=== PATIENT | female | born 1945 | race Caucasian/White ===

== ENCOUNTER → 2018-12-28 09:20 | Outpatient (CLI) | payer OTHER, SELFPAY ==
--- NOTE | 2018-12-28 | DI.MG.S_ITS ---
BILATERAL DIGITAL SCREENING MAMMOGRAM 3D/2D WITH CAD: 12/28/2018 CLINICAL: Routine screening. Comparison is made to exams dated: 12/21/2017 mammogram, 12/02/2015 mammogram, and 11/29/2014 mammogram - [facility]. There are scattered fibroglandular elements in both breasts. Current study was also evaluated with a Computer Aided Detection (CAD) system. No significant masses, calcifications, or other findings are seen in either breast. There has been no significant interval change. IMPRESSION: NEGATIVE There is no mammographic evidence of malignancy. A 1 year screening mammogram is recommended. This exam was interpreted at Station ID: [id number]. NOTE: For mammograms, a report in lay terms will be sent to the patient. Approximately 15% of breast malignancies will not be visualized mammographically. In the management of a palpable breast mass, a negative mammogram must not discourage biopsy of a clinically suspicious lesion. Electronically Signed By: Yaniv Cooley M.D. at/tg:12/28/2018 09:56:14 copy to: Jose Hays letter sent: Normal Exam ACR BI-RADS Category 1: Negative [id number]
== END ==
PROVIDERS: PCP Family Medicine; Visit Provider Nurse Practitioner Family
DX: Z12.31 Encounter for screening mammogram for malignant neoplasm of breast (principal)
CPT/HCPCS: 77063; 77067

== ENCOUNTER → 2019-02-06 09:45 | Outpatient (CLI) | payer OTHER, SELFPAY | PROVIDERS: PCP Family Medicine; Visit Provider Nurse Practitioner Family | DX: M85.852 Other specified disorders of bone density and structure, left thigh (principal); Z78.0 Asymptomatic menopausal state; Z82.62 Family history of osteoporosis | CPT/HCPCS: 77080; 77081 ==

== ENCOUNTER → 2019-04-28 10:16 | Outpatient (CLI) | payer OTHER, SELFPAY ==
--- NOTE | 2019-04-28 | DI.RAD.S_ITS ---
PROCEDURE: XR KNEE RT 3V INDICATIONS: PAIN IN RIGHT KNEE TECHNIQUE: 3 views of the knee were acquired. COMPARISON: None. FINDINGS: Bones: There is moderate right femorotibial medial compartment narrowing. There is small tricompartmental osteophytes. Soft tissues: No joint effusion. There is medial calcific tendinitis. IMPRESSION: Mild osteoarthritis and medial calcific tendinitis. Dictated by: Twyla Florence M.D. on 04/28/2019 at 11:44 Approved by: Twyla Florence M.D. on 04/28/2019 at 11:45
== END ==
PROVIDERS: PCP Nurse Practitioner Family; Visit Provider Nurse Practitioner Family
DX: M17.11 Unilateral primary osteoarthritis, right knee (principal); M76.51 Patellar tendinitis, right knee; M25.561 Pain in right knee
CPT/HCPCS: 73562

== ENCOUNTER 2019-11-08 09:00 | Outpatient (RCR) | payer OTHER, SELFPAY ==
--- NOTE | 2019-09-14 10:20 | PT.OIE ---
Current Diagnoses Unilateral primary osteoarthritis, right knee (09/14/19) Visit Care Team Role Provider Type CHIVO Layton Primary Care Provider Non-Staff Specialty: Medical Address: [address] [place], [address] Email: Cosmo Ferguson MD Attending Provider Non-Staff Specialty: Orthopedics Address: [address] [place] [address], [id number] Email: Physical Therapy Initial Evaluation PT-OP-A Visit Information Start: 09/13/19 18:53 Freq: Status: Active Protocol: Document 09/14/19 08:14 [facility] (Rec: 09/14/19 09:57 [facility] [id number]) Out-Patient Physical Therapy Visit Information Visit Information Visit Type Initial Evaluation Visit Start Time 08:15 Visit Stop Time 09:00 Total Visit Minutes 45 Visit Number 1 Number of SHEAR HELPER Visits 0 PT-OP-B Current Condition Start: 09/13/19 18:53 Freq: Status: Active Protocol: Document 09/14/19 08:14 [facility] (Rec: 09/14/19 09:57 [facility] [id number]) Current Condition History of Current Condition Onset Date Sep 08 2019 Current Complaints s/p R partial knee replacement History of Current Condition Pt reports she is progressing well with dec meds and progressing with activity at home. She does not always use the walker. She normally does hiking, walking and water aerobics and gardens a lot. Pt reprots starting feeling better but has done 700-2000 steps the past few days. Prior Treatments and Tests L partial knee replacement, L hip replacement (post), osteopenia, arthritis, L wrist fx 6 years ago, 2 years ago L radius & ulna fx d/t falls Treatment Goals Patient/Caregiver Goals return hiking, walking, water aerobics gardening PT-OP-C Subjective Start: 09/13/19 18:53 Freq: Status: Active Protocol: Document 09/14/19 08:14 [facility] (Rec: 09/14/19 09:57 [facility] [id number]) Patient Questionnaires Lower Extremity Functional Scale LEFS Score 28 OP-PT Pain Assessment Location R knee Pain Location Details med Scale Used Numeric (1 - 10) Description- Other tension, stiffness Pain Aggravating Factors Stair Climbing,Bending Other Pain Aggravating Factors finding positiong sleeping, getting down, twisting, up/ down from chair Pain Alleviating Factors Cold,Medication,Exercise PT-OP-F Manual Assessment Start: 09/13/19 18:53 Freq: Status: Active Protocol: Document 09/14/19 08:14 [facility] (Rec: 09/14/19 09:57 [facility] [id number]) Manual Assessments Soft Tissue Assessment Soft Tissue Mobility Assessment bruising on thigh and calf and around knee so not tested PT-OP-G Mobility & Gait Start: 09/13/19 18:53 Freq: Status: Active Protocol: Document 09/14/19 08:14 [facility] (Rec: 09/14/19 09:57 [facility] [id number]) OP Gait Assessment Comments Gait Comments Pt presents amb with FWW with even wt bearing. W/o AD no limping but lat hip shift with dec overall push off B PT-OP-K Range of Motion Start: 09/13/19 18:53 Freq: Status: Active Protocol: Document 09/14/19 08:14 [facility] (Rec: 09/14/19 09:57 [facility] [id number]) Knee Goniometric Range of Motion Knee Left Flexion Active (degrees) 126 Extension Active (degrees) 2 Right Flexion Active (degrees) 94 Extension Active (degrees) 6 PT-OP-M Strength Start: 09/13/19 18:53 Freq: Status: Active Protocol: Document 09/14/19 08:14 [facility] (Rec: 09/14/19 09:57 [facility] [id number]) Hip Strength Hip Manual Muscle Testing Left Flexion (L2) 4- Good- Extension (S1) 3+ Fair+ Abduction 4+ Good+ Adduction 5 Normal External Rotation 4- Good- Internal Rotation 4+ Good+ Right Flexion (L2) 3+ Fair+ Extension (S1) 3+ Fair+ Abduction 4- Good- Adduction 4- Good- External Rotation 3+ Fair+ Internal Rotation 4 Good Knee Strength Knee Manual Muscle Testing Left Flexion (S2) 5 Normal Extension (L3) 5 Normal Right Flexion (S2) 4- Good- Extension (L3) 4 Good Ankle/Foot Strength Ankle and Foot Manual Muscle Testing Left Dorsiflexion (L4) 5 Normal Plantarflexion (S1) 4+ Good+ Right Dorsiflexion (L4) 5 Normal Plantarflexion (S1) 4+ Good+ Comments PF tested in seated B PT-OP-Q Treatments Start: 09/13/19 18:53 Freq: Status: Active Protocol: Document 09/14/19 08:14 [facility] (Rec: 09/14/19 09:57 [facility] [id number]) Therapeutic Exercises Supine Exercises heel slides Supine Exercise Name w/APs & quad set Side right Reps/Minutes 10 Sitting Exercises heel slides Sitting Exercise Name w/scoot fwd Side left Reps/Minutes 15 sec x2 Gait Training Gait Activity cane Description amb with proper sequence Self-Care/Home Management Treatment Education Patient Education Home Exercise Program Other Education edu: no driving until cleared, edu on compression sock wearing d/t pt questions, edu on pillow between knees at night, edu re: short bouts of frequent activity PT-OP-T Assessment and Plan Start: 09/13/19 18:53 Freq: Status: Active Protocol: Document 09/14/19 08:14 [facility] (Rec: 09/14/19 09:57 [facility] [id number]) Physical Therapy Assessment Rehab Potential Rehabilitation Potential Excellent Evaluation Complexity Number of Personal Factors/Comorbidities 3 or More Number of Body Systems Impaired 4 or More Clinical Presentation at Evaluation Stable Impairments Impairments Activity Tolerance,Balance, Edema,Functional Activities, Functional Mobility,Gait,Pain, Posture,ROM,Soft Tissue Mobility,Strength Goals activities Short Term Goal (STG) Pt will return to walking short distance 3x/week without inc pain and no AD. STG Duration 10/19/19 Dog Food Shredder Operator Goal (LTG) Pt will be able to return to hiking, walking, and water aerobics actvities as she typically would without inc knee pain. LTG Duration 11/15/19 ROM Short Term Goal (STG) Pt will improve knee ROM to 0- 125 to allow improvement with activity ability. STG Duration 10/19/19 [facility] Goal (LTG) Pt will be able to get up/down from ground without inc pain in order to allow return to gardening activity. LTG Duration 11/15/19 strength Short Term Goal (STG) Pt will be indep with HEP STG Duration 10/15/19 Dog Food Shredder Operator Goal (LTG) Pt will have 5/5 LE strength and LPM to show improved stability and allow her to return to her typical activties without difficulty or pain. LTG Duration 11/15/19 LEFS Impairment 28/80 Short Term Goal (STG) Pt will improve to 45/80 on LEFS in order to showe improved functional ability. STG Duration 10/19/19 Dog Food Shredder Operator Goal (LTG) Pt will improve to 60/80 on LEFS to show ability to return to her typical activity ability. LTG Duration 11/19/19 Assessment Summary Assessment Pt presents 6 days s/p R partial knee replacement with overall dec ROM, inc edema, dec strength, impaired gait & balance and inc pain. She is recovering well overall at this time and was able to train with amb with cane and without AD today, but will cont to require PT in order to progress her mobility in order to allow pt to return to her high level of activity. Physical Therapy Plan Frequency and Duration Frequency of Treatment 2x/Week Duration of Treatment 2 months Plan of Care Start Date 09/14/19 Plan of Care End Date 11/15/19 Therapeutic Interventions Therapeutic Interventions Aquatic Therapy,Balance Training,Gait Training,Home Exercise Program,Joint Mobilizations,Manual Therapy, Neuromuscular Re-education, Patient/Caregiver Education, Self-Care/Home Management,Soft Tissue Mobilization,Taping, Therapeutic Activities, Therapeutic Exercises Modalities Cold Pack/Ice Massage,Electric Stimulation,Hot Packs, Iontophoresis,Ultrasound Next Visit Focus/Plan Next Note Type Treatment Note Next Visit Plan seated stepper, sit<>stand exercise, strengthening for hip, balance training, STM to quad/HS/calves for improving ROM if bruising improved
--- NOTE | 2019-09-19 17:53 | PT.OTN ---
Current Diagnoses Unilateral primary osteoarthritis, right knee (09/19/19) Physical Therapy Treatment Note PT-OP-A Visit Information Start: 09/13/19 18:53 Freq: Status: Active Protocol: Document 09/19/19 09:47 [facility] (Rec: 09/19/19 12:22 [facility] [id number]) Out-Patient Physical Therapy Visit Information Visit Information Visit Type Treatment Note Visit Start Time 09:47 Visit Stop Time 10:45 Total Visit Minutes 58 Visit Number 2 Number of TARIFF EXPERT Visits 0 PT-OP-B Current Condition Start: 09/13/19 18:53 Freq: Status: Active Protocol: Document 09/14/19 08:14 [facility] (Rec: 09/14/19 09:57 [facility] [id number]) Current Condition History of Current Condition Onset Date Sep 08 2019 Current Complaints s/p R partial knee replacement History of Current Condition Pt reports she is progressing well with dec meds and progressing with activity at home. She does not always use the walker. She normally does hiking, walking and water aerobics and gardens a lot. Pt reprots starting feeling better but has done 700-2000 steps the past few days. Prior Treatments and Tests L partial knee replacement, L hip replacement (post), osteopenia, arthritis, L wrist fx 6 years ago, 2 years ago L radius & ulna fx d/t falls Treatment Goals Patient/Caregiver Goals return hiking, walking, water aerobics gardening PT-OP-C Subjective Start: 09/13/19 18:53 Freq: Status: Active Protocol: Document 09/19/19 09:47 [facility] (Rec: 09/19/19 12:22 [facility] [id number]) OP-PT Subjective Patient Comments Patient Comments Pt reports that her pain is improving. SHe is using her walker about 25% of the time in her home, but uses it outside of the house. Pt has post op appt wednesday and will get her stitches out. At night it has been easier to find comfortable positions when sleeping PT-OP-F Manual Assessment Start: 09/13/19 18:53 Freq: Status: Active Protocol: Document 09/14/19 08:14 [facility] (Rec: 09/14/19 09:57 [facility] [id number]) Manual Assessments Soft Tissue Assessment Soft Tissue Mobility Assessment bruising on thigh and calf and around knee so not tested PT-OP-G Mobility & Gait Start: 09/13/19 18:53 Freq: Status: Active Protocol: Document 09/14/19 08:14 [facility] (Rec: 09/14/19 09:57 [facility] [id number]) OP Gait Assessment Comments Gait Comments Pt presents amb with FWW with even wt bearing. W/o AD no limping but lat hip shift with dec overall push off B PT-OP-K Range of Motion Start: 09/13/19 18:53 Freq: Status: Active Protocol: Document 09/14/19 08:14 [facility] (Rec: 09/14/19 09:57 [facility] [id number]) Knee Goniometric Range of Motion Knee Left Flexion Active (degrees) 126 Extension Active (degrees) 2 Right Flexion Active (degrees) 94 Extension Active (degrees) 6 PT-OP-M Strength Start: 09/13/19 18:53 Freq: Status: Active Protocol: Document 09/14/19 08:14 [facility] (Rec: 09/14/19 09:57 [facility] [id number]) Hip Strength Hip Manual Muscle Testing Left Flexion (L2) 4- Good- Extension (S1) 3+ Fair+ Abduction 4+ Good+ Adduction 5 Normal External Rotation 4- Good- Internal Rotation 4+ Good+ Right Flexion (L2) 3+ Fair+ Extension (S1) 3+ Fair+ Abduction 4- Good- Adduction 4- Good- External Rotation 3+ Fair+ Internal Rotation 4 Good Knee Strength Knee Manual Muscle Testing Left Flexion (S2) 5 Normal Extension (L3) 5 Normal Right Flexion (S2) 4- Good- Extension (L3) 4 Good Ankle/Foot Strength Ankle and Foot Manual Muscle Testing Left Dorsiflexion (L4) 5 Normal Plantarflexion (S1) 4+ Good+ Right Dorsiflexion (L4) 5 Normal Plantarflexion (S1) 4+ Good+ Comments PF tested in seated B PT-OP-Q Treatments Start: 09/13/19 18:53 Freq: Status: Active Protocol: Document 09/19/19 09:47 [facility] (Rec: 09/19/19 12:22 [facility] [id number]) Cardio Equipment Recumbent Elliptical (Biodex) Duration (Minutes) 7 Resistance 2 Gym Equipment Shuttle Balance blue Comments 1.fwd/back WBOS, NBOS, stagger stance 2.side/side WBOS, NBOS Therapeutic Exercises Supine Exercises heel slides Supine Exercise Name w/APs & quad set Side right Reps/Minutes 10 Sitting Exercises heel slides Sitting Exercise Name w/scoot fwd Side left Reps/Minutes 15 sec x2 Standing Exercises squat Standing Exercise Name sit to stand Side bilateral Reps/Minutes 10 Comments w/ use of UE as needed hip strength Standing Exercise Name hip abd and ext Side bilateral Resistance none Reps/Minutes 10B Manual Therapy Treatment Soft Tissue Mobilization quadriceps Body Location R ant/lat quad Mobilization Type Rolling,Strumming Intensity/Depth Superficial Body Position Supine Neuro Re-Education Treatment Balance Activities tandem Details tandem stance Surface firm, blue/black therapad PT-OP-R Modalities Start: 09/13/19 18:53 Freq: Status: Active Protocol: Document 09/19/19 09:47 [facility] (Rec: 09/19/19 12:22 [facility] [id number]) Hot Pack/Cold Pack Treatment Hot Pack Location R knee Patient Position Hooklying Treatment Duration (minutes) 15 Patient Tolerance Good PT-OP-T Assessment and Plan Start: 09/13/19 18:53 Freq: Status: Active Protocol: Document 09/19/19 09:47 [facility] (Rec: 09/19/19 12:22 [facility] [id number]) Physical Therapy Assessment Goals activities Short Term Goal (STG) Pt will return to walking short distance 3x/week without inc pain and no AD. STG Duration 10/19/19 [facility] Goal (LTG) Pt will be able to return to hiking, walking, and water aerobics actvities as she typically would without inc knee pain. LTG Duration 11/15/19 ROM Short Term Goal (STG) Pt will improve knee ROM to 0- 125 to allow improvement with activity ability. STG Duration 10/19/19 Plate Hanger Goal (LTG) Pt will be able to get up/down from ground without inc pain in order to allow return to gardening activity. LTG Duration 11/15/19 strength Short Term Goal (STG) Pt will be indep with HEP STG Duration 10/15/19 Plate Hanger Goal (LTG) Pt will have 5/5 LE strength and LPM to show improved stability and allow her to return to her typical activties without difficulty or pain. LTG Duration 11/15/19 LEFS Impairment 28/80 Short Term Goal (STG) Pt will improve to 45/80 on LEFS in order to showe improved functional ability. STG Duration 10/19/19 [facility] Goal (LTG) Pt will improve to 60/80 on LEFS to show ability to return to her typical activity ability. LTG Duration 11/19/19 Assessment Summary Assessment Pt was able to tolerate using the recumbant ellipitical and increased knee flexion. Pt was able to tolerate sit to stand exercise, but required frequent cueing for not letting her knees cave in during the motion and for controlled descent to the chair. Pt had increased knee flexion with heel slides following STM to lat/ant quad. Pt was adequately challnged with NBOS stances but could increase difficulty on the balance board to red clips. Physical Therapy Plan Frequency and Duration Frequency of Treatment 2x/Week Duration of Treatment 2 months Plan of Care Start Date 09/14/19 Plan of Care End Date 11/15/19 Therapeutic Interventions Therapeutic Interventions Aquatic Therapy,Balance Training,Gait Training,Home Exercise Program,Joint Mobilizations,Manual Therapy, Neuromuscular Re-education, Patient/Caregiver Education, Self-Care/Home Management,Soft Tissue Mobilization,Taping, Therapeutic Activities, Therapeutic Exercises Modalities Cold Pack/Ice Massage,Electric Stimulation,Hot Packs, Iontophoresis,Ultrasound Next Visit Focus/Plan Next Note Type Treatment Note Next Visit Plan revisit sit<>stand exercise, strengthening for hip, balance training, side stepping, STM to quad/HS/calves for improving ROM if bruising improved, progress to red clips
--- NOTE | 2019-09-26 12:20 | PT.OTN ---
Current Diagnoses Unilateral primary osteoarthritis, right knee (09/26/19) Physical Therapy Treatment Note PT-OP-A Visit Information Start: 09/13/19 18:53 Freq: Status: Active Protocol: Document 09/26/19 09:04 [facility] (Rec: 09/26/19 12:20 [facility] [id number]) Out-Patient Physical Therapy Visit Information Visit Information Visit Type Treatment Note Visit Start Time 09:05 Visit Stop Time 09:54 Total Visit Minutes 49 Visit Number 3 Number of AIR TANK ASSEMBLER Visits 0 PT-OP-B Current Condition Start: 09/13/19 18:53 Freq: Status: Active Protocol: Document 09/14/19 08:14 [facility] (Rec: 09/14/19 09:57 [facility] [id number]) Current Condition History of Current Condition Onset Date Sep 08 2019 Current Complaints s/p R partial knee replacement History of Current Condition Pt reports she is progressing well with dec meds and progressing with activity at home. She does not always use the walker. She normally does hiking, walking and water aerobics and gardens a lot. Pt reprots starting feeling better but has done 700-2000 steps the past few days. Prior Treatments and Tests L partial knee replacement, L hip replacement (post), osteopenia, arthritis, L wrist fx 6 years ago, 2 years ago L radius & ulna fx d/t falls Treatment Goals Patient/Caregiver Goals return hiking, walking, water aerobics gardening PT-OP-C Subjective Start: 09/13/19 18:53 Freq: Status: Active Protocol: Document 09/26/19 09:04 [facility] (Rec: 09/26/19 12:20 [facility] [id number]) OP-PT Subjective Patient Comments Patient Comments Pt reports she went to the doctor and she was cleared to go out and about in community and use cane only as needed. Pt reports she did a lot the past couple days and is more swollen. She only iced once yesterday d/t being out of town. Pt reports some inc pain but not huge inc in pain. PT-OP-F Manual Assessment Start: 09/13/19 18:53 Freq: Status: Active Protocol: Document 09/14/19 08:14 [facility] (Rec: 09/14/19 09:57 [facility] [id number]) Manual Assessments Soft Tissue Assessment Soft Tissue Mobility Assessment bruising on thigh and calf and around knee so not tested PT-OP-G Mobility & Gait Start: 09/13/19 18:53 Freq: Status: Active Protocol: Document 09/14/19 08:14 [facility] (Rec: 09/14/19 09:57 [facility] [id number]) OP Gait Assessment Comments Gait Comments Pt presents amb with FWW with even wt bearing. W/o AD no limping but lat hip shift with dec overall push off B PT-OP-K Range of Motion Start: 09/13/19 18:53 Freq: Status: Active Protocol: Document 09/14/19 08:14 [facility] (Rec: 09/14/19 09:57 [facility] [id number]) Knee Goniometric Range of Motion Knee Left Flexion Active (degrees) 126 Extension Active (degrees) 2 Right Flexion Active (degrees) 94 Extension Active (degrees) 6 PT-OP-M Strength Start: 09/13/19 18:53 Freq: Status: Active Protocol: Document 09/14/19 08:14 [facility] (Rec: 09/14/19 09:57 [facility] [id number]) Hip Strength Hip Manual Muscle Testing Left Flexion (L2) 4- Good- Extension (S1) 3+ Fair+ Abduction 4+ Good+ Adduction 5 Normal External Rotation 4- Good- Internal Rotation 4+ Good+ Right Flexion (L2) 3+ Fair+ Extension (S1) 3+ Fair+ Abduction 4- Good- Adduction 4- Good- External Rotation 3+ Fair+ Internal Rotation 4 Good Knee Strength Knee Manual Muscle Testing Left Flexion (S2) 5 Normal Extension (L3) 5 Normal Right Flexion (S2) 4- Good- Extension (L3) 4 Good Ankle/Foot Strength Ankle and Foot Manual Muscle Testing Left Dorsiflexion (L4) 5 Normal Plantarflexion (S1) 4+ Good+ Right Dorsiflexion (L4) 5 Normal Plantarflexion (S1) 4+ Good+ Comments PF tested in seated B PT-OP-Q Treatments Start: 09/13/19 18:53 Freq: Status: Active Protocol: Document 09/26/19 09:04 [facility] (Rec: 09/26/19 12:20 [facility] [id number]) Cardio Equipment Recumbent Elliptical ([employer]) Duration (Minutes) 7 Resistance 2 Therapeutic Exercises Standing Exercises Terminal knee ext Side right Equipment Used L2 Reps/Minutes 20 squat Standing Exercise Name sit to stand Side bilateral Reps/Minutes 10 Comments w/ use of UE as needed hip strength Standing Exercise Name hip abd and ext Side bilateral Resistance none Reps/Minutes 10B ea Manual Therapy Treatment Soft Tissue Mobilization HS Body Location R Mobilization Type Rolling ITB Body Location R Mobilization Type Rolling,Strumming quadriceps Body Location R ant/lat quad Mobilization Type Rolling,Strumming Intensity/Depth Superficial Body Position Supine PT-OP-R Modalities Start: 09/13/19 18:53 Freq: Status: Active Protocol: Document 09/26/19 09:04 [facility] (Rec: 09/26/19 12:20 [facility] [id number]) Hot Pack/Cold Pack Treatment Cold Pack Location ant & post R knee Patient Position Hooklying Treatment Duration (minutes) 10 PT-OP-T Assessment and Plan Start: 09/13/19 18:53 Freq: Status: Active Protocol: Document 09/26/19 09:04 [facility] (Rec: 09/26/19 12:20 [facility] [id number]) Physical Therapy Assessment Goals activities Short Term Goal (STG) Pt will return to walking short distance 3x/week without inc pain and no AD. STG Duration 10/19/19 Field Technician Goal (LTG) Pt will be able to return to hiking, walking, and water aerobics actvities as she typically would without inc knee pain. LTG Duration 11/15/19 ROM Short Term Goal (STG) Pt will improve knee ROM to 0- 125 to allow improvement with activity ability. STG Duration 10/19/19 Halfway Goal (LTG) Pt will be able to get up/down from ground without inc pain in order to allow return to gardening activity. LTG Duration 11/15/19 strength Short Term Goal (STG) Pt will be indep with HEP STG Duration 10/15/19 Halfway Goal (LTG) Pt will have 5/5 LE strength and LPM to show improved stability and allow her to return to her typical activties without difficulty or pain. LTG Duration 11/15/19 LEFS Impairment 28/80 Short Term Goal (STG) Pt will improve to 45/80 on LEFS in order to showe improved functional ability. STG Duration 10/19/19 Halfway Goal (LTG) Pt will improve to 60/80 on LEFS to show ability to return to her typical activity ability. LTG Duration 11/19/19 Assessment Summary Assessment Pt able to tolerate all exercises without inc pain. She had dec ROM today compared to her appt with MD but likely d/t inc swelling present today and pt was encouraged to ice at home. Relief felt with STM to ITB region Physical Therapy Plan Frequency and Duration Frequency of Treatment 2x/Week Duration of Treatment 2 months Plan of Care Start Date 09/14/19 Plan of Care End Date 11/15/19 Next Visit Focus/Plan Next Note Type Treatment Note Next Visit Plan cont to progress LE strengthening & knee ROM, STM as needed
--- NOTE | 2019-10-03 09:07 | PT.OTN ---
Current Diagnoses Unilateral primary osteoarthritis, right knee (10/03/19) Physical Therapy Treatment Note PT-OP-A Visit Information Start: 09/13/19 18:53 Freq: Status: Active Protocol: Document 10/03/19 08:18 [facility] (Rec: 10/03/19 09:07 [facility] [id number]) Out-Patient Physical Therapy Visit Information Visit Information Visit Type Treatment Note Visit Start Time 08:15 Visit Stop Time 09:08 Total Visit Minutes 53 Visit Number 4 Number of SEISMOGRAPH CHIEF Visits 0 PT-OP-B Current Condition Start: 09/13/19 18:53 Freq: Status: Active Protocol: Document 09/14/19 08:14 [facility] (Rec: 09/14/19 09:57 [facility] [id number]) Current Condition History of Current Condition Onset Date Sep 08 2019 Current Complaints s/p R partial knee replacement History of Current Condition Pt reports she is progressing well with dec meds and progressing with activity at home. She does not always use the walker. She normally does hiking, walking and water aerobics and gardens a lot. Pt reprots starting feeling better but has done 700-2000 steps the past few days. Prior Treatments and Tests L partial knee replacement, L hip replacement (post), osteopenia, arthritis, L wrist fx 6 years ago, 2 years ago L radius & ulna fx d/t falls Treatment Goals Patient/Caregiver Goals return hiking, walking, water aerobics gardening PT-OP-C Subjective Start: 09/13/19 18:53 Freq: Status: Active Protocol: Document 10/03/19 08:18 [facility] (Rec: 10/03/19 09:07 [facility] [id number]) OP-PT Subjective Patient Comments Patient Comments Pt reports pain has been going okay. She walked 5 miles in [place] one day. Patient Reported Progress Improving PT-OP-F Manual Assessment Start: 09/13/19 18:53 Freq: Status: Active Protocol: Document 09/14/19 08:14 [facility] (Rec: 09/14/19 09:57 [facility] [id number]) Manual Assessments Soft Tissue Assessment Soft Tissue Mobility Assessment bruising on thigh and calf and around knee so not tested PT-OP-G Mobility & Gait Start: 09/13/19 18:53 Freq: Status: Active Protocol: Document 09/14/19 08:14 [facility] (Rec: 09/14/19 09:57 [facility] [id number]) OP Gait Assessment Comments Gait Comments Pt presents amb with FWW with even wt bearing. W/o AD no limping but lat hip shift with dec overall push off B PT-OP-K Range of Motion Start: 09/13/19 18:53 Freq: Status: Active Protocol: Document 09/14/19 08:14 [facility] (Rec: 09/14/19 09:57 [facility] [id number]) Knee Goniometric Range of Motion Knee Left Flexion Active (degrees) 126 Extension Active (degrees) 2 Right Flexion Active (degrees) 94 Extension Active (degrees) 6 PT-OP-M Strength Start: 09/13/19 18:53 Freq: Status: Active Protocol: Document 09/14/19 08:14 [facility] (Rec: 09/14/19 09:57 [facility] [id number]) Hip Strength Hip Manual Muscle Testing Left Flexion (L2) 4- Good- Extension (S1) 3+ Fair+ Abduction 4+ Good+ Adduction 5 Normal External Rotation 4- Good- Internal Rotation 4+ Good+ Right Flexion (L2) 3+ Fair+ Extension (S1) 3+ Fair+ Abduction 4- Good- Adduction 4- Good- External Rotation 3+ Fair+ Internal Rotation 4 Good Knee Strength Knee Manual Muscle Testing Left Flexion (S2) 5 Normal Extension (L3) 5 Normal Right Flexion (S2) 4- Good- Extension (L3) 4 Good Ankle/Foot Strength Ankle and Foot Manual Muscle Testing Left Dorsiflexion (L4) 5 Normal Plantarflexion (S1) 4+ Good+ Right Dorsiflexion (L4) 5 Normal Plantarflexion (S1) 4+ Good+ Comments PF tested in seated B PT-OP-Q Treatments Start: 09/13/19 18:53 Freq: Status: Active Protocol: Document 10/03/19 08:18 [facility] (Rec: 10/03/19 09:07 [facility] [id number]) Cardio Equipment Recumbent Bicycle Duration (Minutes) 5 Resistance 1 Seat Position 4 Other rocking then backwards then fwd Gym Equipment Shuttle Recovery Bilateral Squats Resistance 75 Shuttle Recovery Platform Stable Reps/Time 20 Shuttle Balance red Comments fwd & side: WBOS, NBOS Therapeutic Exercises Standing Exercises Terminal knee ext Side right Equipment Used L2 Reps/Minutes 20 squat Standing Exercise Name sit to stand Side bilateral Reps/Minutes 10 Comments w/ use of UE as needed hip strength Standing Exercise Name hip abd and ext Side bilateral Resistance L1 Reps/Minutes 15B ea Manual Therapy Treatment Soft Tissue Mobilization ITB Body Location R Mobilization Type Rolling,Strumming PT-OP-R Modalities Start: 09/13/19 18:53 Freq: Status: Active Protocol: Document 10/03/19 08:18 [facility] (Rec: 10/03/19 09:07 [facility] [id number]) Hot Pack/Cold Pack Treatment Cold Pack Location ant & post R knee Patient Position Hooklying Treatment Duration (minutes) 10 PT-OP-T Assessment and Plan Start: 09/13/19 18:53 Freq: Status: Active Protocol: Document 10/03/19 08:18 [facility] (Rec: 10/03/19 09:07 [facility] [id number]) Physical Therapy Assessment Goals activities Short Term Goal (STG) Pt will return to walking short distance 3x/week without inc pain and no AD. STG Duration 10/19/19 Residential Interior Designer Goal (LTG) Pt will be able to return to hiking, walking, and water aerobics actvities as she typically would without inc knee pain. LTG Duration 11/15/19 ROM Short Term Goal (STG) Pt will improve knee ROM to 0- 125 to allow improvement with activity ability. STG Duration 10/19/19 Residential Interior Designer Goal (LTG) Pt will be able to get up/down from ground without inc pain in order to allow return to gardening activity. LTG Duration 11/15/19 strength Short Term Goal (STG) Pt will be indep with HEP STG Duration 10/15/19 Residential Interior Designer Goal (LTG) Pt will have 5/5 LE strength and LPM to show improved stability and allow her to return to her typical activties without difficulty or pain. LTG Duration 11/15/19 LEFS Impairment 28/80 Short Term Goal (STG) Pt will improve to 45/80 on LEFS in order to showe improved functional ability. STG Duration 10/19/19 Residential Interior Designer Goal (LTG) Pt will improve to 60/80 on LEFS to show ability to return to her typical activity ability. LTG Duration 11/19/19 Assessment Summary Assessment Pt did well with all exercises and had ROM of 1-110 today and improved ext to full ext with manual therapy. She was educated on starting to do small walks a couple times a week to start working into her typical walking program or using the bike at the gym. She imrpoved with contorl of sit to stands and rarely needed UE support but did require cueing to avoid IR of hips. Physical Therapy Plan Frequency and Duration Frequency of Treatment 2x/Week Duration of Treatment 2 months Plan of Care Start Date 09/14/19 Plan of Care End Date 11/15/19 Next Visit Focus/Plan Next Note Type Treatment Note Next Visit Plan cont to progress LE strengthening & knee ROM, STM as needed
--- NOTE | 2019-10-10 12:20 | PT.OTN ---
Current Diagnoses Unilateral primary osteoarthritis, right knee (10/10/19) Physical Therapy Treatment Note PT-OP-A Visit Information Start: 09/13/19 18:53 Freq: Status: Active Protocol: Document 10/10/19 09:06 [facility] (Rec: 10/10/19 12:20 [facility] [id number]) Out-Patient Physical Therapy Visit Information Visit Information Visit Type Treatment Note Visit Start Time 09:03 Visit Stop Time 09:55 Total Visit Minutes 52 Visit Number 5 Number of WOOD WINDOW AND DOOR CRAFTSMAN Visits 0 PT-OP-B Current Condition Start: 09/13/19 18:53 Freq: Status: Active Protocol: Document 09/14/19 08:14 [facility] (Rec: 09/14/19 09:57 [facility] [id number]) Current Condition History of Current Condition Onset Date Sep 08 2019 Current Complaints s/p R partial knee replacement History of Current Condition Pt reports she is progressing well with dec meds and progressing with activity at home. She does not always use the walker. She normally does hiking, walking and water aerobics and gardens a lot. Pt reprots starting feeling better but has done 700-2000 steps the past few days. Prior Treatments and Tests L partial knee replacement, L hip replacement (post), osteopenia, arthritis, L wrist fx 6 years ago, 2 years ago L radius & ulna fx d/t falls Treatment Goals Patient/Caregiver Goals return hiking, walking, water aerobics gardening PT-OP-C Subjective Start: 09/13/19 18:53 Freq: Status: Active Protocol: Document 10/10/19 09:06 [facility] (Rec: 10/10/19 12:20 [facility] [id number]) OP-PT Subjective Patient Comments Patient Comments Pt feels like range is improving. She notes it is still achey Patient Reported Progress Improving PT-OP-F Manual Assessment Start: 09/13/19 18:53 Freq: Status: Active Protocol: Document 09/14/19 08:14 [facility] (Rec: 09/14/19 09:57 [facility] [id number]) Manual Assessments Soft Tissue Assessment Soft Tissue Mobility Assessment bruising on thigh and calf and around knee so not tested PT-OP-G Mobility & Gait Start: 09/13/19 18:53 Freq: Status: Active Protocol: Document 09/14/19 08:14 [facility] (Rec: 09/14/19 09:57 [facility] [id number]) OP Gait Assessment Comments Gait Comments Pt presents amb with FWW with even wt bearing. W/o AD no limping but lat hip shift with dec overall push off B PT-OP-K Range of Motion Start: 09/13/19 18:53 Freq: Status: Active Protocol: Document 09/14/19 08:14 [facility] (Rec: 09/14/19 09:57 [facility] [id number]) Knee Goniometric Range of Motion Knee Left Flexion Active (degrees) 126 Extension Active (degrees) 2 Right Flexion Active (degrees) 94 Extension Active (degrees) 6 PT-OP-M Strength Start: 09/13/19 18:53 Freq: Status: Active Protocol: Document 09/14/19 08:14 [facility] (Rec: 09/14/19 09:57 [facility] [id number]) Hip Strength Hip Manual Muscle Testing Left Flexion (L2) 4- Good- Extension (S1) 3+ Fair+ Abduction 4+ Good+ Adduction 5 Normal External Rotation 4- Good- Internal Rotation 4+ Good+ Right Flexion (L2) 3+ Fair+ Extension (S1) 3+ Fair+ Abduction 4- Good- Adduction 4- Good- External Rotation 3+ Fair+ Internal Rotation 4 Good Knee Strength Knee Manual Muscle Testing Left Flexion (S2) 5 Normal Extension (L3) 5 Normal Right Flexion (S2) 4- Good- Extension (L3) 4 Good Ankle/Foot Strength Ankle and Foot Manual Muscle Testing Left Dorsiflexion (L4) 5 Normal Plantarflexion (S1) 4+ Good+ Right Dorsiflexion (L4) 5 Normal Plantarflexion (S1) 4+ Good+ Comments PF tested in seated B PT-OP-Q Treatments Start: 09/13/19 18:53 Freq: Status: Active Protocol: Document 10/10/19 09:06 [facility] (Rec: 10/10/19 12:20 [facility] [id number]) Cardio Equipment Recumbent Bicycle Duration (Minutes) 6 Resistance 4 Seat Position 4 Gym Equipment Shuttle Recovery Unilateral Squats Resistance 50 Shuttle Recovery Platform Stable Reps/Time 20 Bilateral Squats Resistance 100 Shuttle Recovery Platform Stable Reps/Time 30 Shuttle Balance red Comments fwd & side: WBOS, NBOS & wt shifts fwd: staggered stance Manual Therapy Treatment Soft Tissue Mobilization scar tissue Mobilization Type Cross-Friction,Rolling, Strumming,Sustained Pressure Intensity/Depth Moderate Comments knee fex & ext position Joint Mobilizations PF Joint R Direction inf, sup, med PT-OP-R Modalities Start: 09/13/19 18:53 Freq: Status: Active Protocol: Document 10/03/19 08:18 [facility] (Rec: 10/03/19 09:07 [facility] [id number]) Hot Pack/Cold Pack Treatment Cold Pack Location ant & post R knee Patient Position Hooklying Treatment Duration (minutes) 10 PT-OP-T Assessment and Plan Start: 09/13/19 18:53 Freq: Status: Active Protocol: Document 10/10/19 09:06 [facility] (Rec: 10/10/19 12:20 [facility] [id number]) Physical Therapy Assessment Goals activities Short Term Goal (STG) Pt will return to walking short distance 3x/week without inc pain and no AD. STG Duration 10/19/19 Destination Imagination Coordinator Goal (LTG) Pt will be able to return to hiking, walking, and water aerobics actvities as she typically would without inc knee pain. LTG Duration 11/15/19 ROM Short Term Goal (STG) Pt will improve knee ROM to 0- 125 to allow improvement with activity ability. STG Duration 10/19/19 Destination Imagination Coordinator Goal (LTG) Pt will be able to get up/down from ground without inc pain in order to allow return to gardening activity. LTG Duration 11/15/19 strength Short Term Goal (STG) Pt will be indep with HEP STG Duration 10/15/19 Mcfp Goal (LTG) Pt will have 5/5 LE strength and LPM to show improved stability and allow her to return to her typical activties without difficulty or pain. LTG Duration 11/15/19 LEFS Impairment 28/80 Short Term Goal (STG) Pt will improve to 45/80 on LEFS in order to showe improved functional ability. STG Duration 10/19/19 Destination Imagination Coordinator Goal (LTG) Pt will improve to 60/80 on LEFS to show ability to return to her typical activity ability. LTG Duration 11/19/19 Assessment Summary Assessment Pt had 1-114 ROM today and is improving with cont PT. she cont to be able to do more activities functioanlly and can ascend stairs reciprocally without pain but has pain with descent. Physical Therapy Plan Frequency and Duration Frequency of Treatment 2x/Week Duration of Treatment 2 months Plan of Care Start Date 09/14/19 Plan of Care End Date 11/15/19 Next Visit Focus/Plan Next Note Type Treatment Note Next Visit Plan cont to progress LE strengthening & knee ROM, STM as needed
--- NOTE | 2019-10-12 10:00 | PT.OTN ---
Current Diagnoses Unilateral primary osteoarthritis, right knee (10/12/19) Physical Therapy Treatment Note PT-OP-A Visit Information Start: 09/13/19 18:53 Freq: Status: Active Protocol: Document 10/12/19 09:04 [facility] (Rec: 10/12/19 09:52 [facility] [id number]) Out-Patient Physical Therapy Visit Information Visit Information Visit Type Progress Note Visit Start Time 09:00 Visit Stop Time 09:50 Total Visit Minutes 50 Visit Number 6 Number of COTTON TIER Visits 0 PT-OP-B Current Condition Start: 09/13/19 18:53 Freq: Status: Active Protocol: Document 09/14/19 08:14 [facility] (Rec: 09/14/19 09:57 [facility] [id number]) Current Condition History of Current Condition Onset Date Sep 08 2019 Current Complaints s/p R partial knee replacement History of Current Condition Pt reports she is progressing well with dec meds and progressing with activity at home. She does not always use the walker. She normally does hiking, walking and water aerobics and gardens a lot. Pt reprots starting feeling better but has done 700-2000 steps the past few days. Prior Treatments and Tests L partial knee replacement, L hip replacement (post), osteopenia, arthritis, L wrist fx 6 years ago, 2 years ago L radius & ulna fx d/t falls Treatment Goals Patient/Caregiver Goals return hiking, walking, water aerobics gardening PT-OP-C Subjective Start: 09/13/19 18:53 Freq: Status: Active Protocol: Document 10/12/19 09:04 [facility] (Rec: 10/12/19 09:52 [facility] [id number]) OP-PT Subjective Patient Comments Patient Comments Pt reports she was able to do water walking and some gentle swimming and it went well and felt good. PT-OP-F Manual Assessment Start: 09/13/19 18:53 Freq: Status: Active Protocol: Document 09/14/19 08:14 [facility] (Rec: 09/14/19 09:57 [facility] [id number]) Manual Assessments Soft Tissue Assessment Soft Tissue Mobility Assessment bruising on thigh and calf and around knee so not tested PT-OP-G Mobility & Gait Start: 09/13/19 18:53 Freq: Status: Active Protocol: Document 09/14/19 08:14 [facility] (Rec: 09/14/19 09:57 [facility] [id number]) OP Gait Assessment Comments Gait Comments Pt presents amb with FWW with even wt bearing. W/o AD no limping but lat hip shift with dec overall push off B PT-OP-K Range of Motion Start: 09/13/19 18:53 Freq: Status: Active Protocol: Document 10/12/19 09:04 [facility] (Rec: 10/12/19 09:52 [facility] [id number]) Knee Goniometric Range of Motion Knee Right Flexion Active (degrees) 116 Extension Active (degrees) 0 PT-OP-M Strength Start: 09/13/19 18:53 Freq: Status: Active Protocol: Document 10/12/19 09:04 [facility] (Rec: 10/12/19 09:52 [facility] [id number]) Hip Strength Hip Manual Muscle Testing Left Flexion (L2) 4 Good Extension (S1) 4 Good Abduction 4+ Good+ Adduction 5 Normal External Rotation 4 Good Internal Rotation 5 Normal Right Flexion (L2) 4 Good Extension (S1) 3+ Fair+ Abduction 4 Good Adduction 5 Normal External Rotation 4+ Good+ Internal Rotation 4+ Good+ Knee Strength Knee Manual Muscle Testing Left Flexion (S2) 5 Normal Extension (L3) 5 Normal Right Flexion (S2) 5 Normal Extension (L3) 4+ Good+ Ankle/Foot Strength Ankle and Foot Manual Muscle Testing Left Dorsiflexion (L4) 5 Normal Plantarflexion (S1) 5 Normal Right Dorsiflexion (L4) 5 Normal Plantarflexion (S1) 5 Normal Comments PF tested in standing PT-OP-Q Treatments Start: 09/13/19 18:53 Freq: Status: Active Protocol: Document 10/12/19 09:04 [facility] (Rec: 10/12/19 09:52 [facility] [id number]) Cardio Equipment Recumbent Bicycle Duration (Minutes) 6 Resistance 4-5 Seat Position 4 Gym Equipment Shuttle Recovery Unilateral Squats Resistance 50 Shuttle Recovery Platform Stable Reps/Time 20 Bilateral Squats Resistance 112 Shuttle Recovery Platform Stable Reps/Time 30 Shuttle Balance red Comments fwd & side: WBOS, NBOS & wt shifts fwd: staggered stance Therapeutic Exercises Standing Exercises hip strength Standing Exercise Name hip abd and ext Side bilateral Resistance L1 Reps/Minutes 15B ea Manual Therapy Treatment Soft Tissue Mobilization scar tissue Mobilization Type Cross-Friction,Rolling, Strumming,Sustained Pressure Intensity/Depth Moderate Comments knee fex & ext position PT-OP-R Modalities Start: 09/13/19 18:53 Freq: Status: Active Protocol: Document 10/12/19 09:04 [facility] (Rec: 10/12/19 09:55 [facility] [id number]) Hot Pack/Cold Pack Treatment Cold Pack Location ant & post R knee Patient Position Hooklying Treatment Duration (minutes) 10 PT-OP-T Assessment and Plan Start: 09/13/19 18:53 Freq: Status: Active Protocol: Document 10/12/19 09:04 [facility] (Rec: 10/12/19 09:52 [facility] [id number]) Physical Therapy Assessment Goals activities Short Term Goal (STG) Pt will return to walking short distance 3x/week without inc pain and no AD. 10/12- STG Duration 10/19/19 Correction Goal (LTG) Pt will be able to return to hiking, walking, and water aerobics actvities as she typically would without inc knee pain. LTG Duration 11/15/19 ROM Short Term Goal (STG) Pt will improve knee ROM to 0- 125 to allow improvement with activity ability. 10/12-significant improvement STG Duration 10/19/19 Casualty Underwriter Goal (LTG) Pt will be able to get up/down from ground without inc pain in order to allow return to gardening activity. LTG Duration 11/15/19 strength Short Term Goal (STG) Pt will be indep with HEP STG Duration achieved Casualty Underwriter Goal (LTG) Pt will have 5/5 LE strength and LPM to show improved stability and allow her to return to her typical activties without difficulty or pain. 10/12-significantly improved LE strength LTG Duration 11/15/19 LEFS Impairment 28/80 Short Term Goal (STG) Pt will improve to 45/80 on LEFS in order to showe improved functional ability. STG Duration 10/19/19 Correction Goal (LTG) Pt will improve to 60/80 on LEFS to show ability to return to her typical activity ability. LTG Duration 11/19/19 Assessment Summary Assessment Pt cont to improve with ROM and strength. She is improving in her functional mobility. She had 0-116 today is likely to cont to improve with cont PT. She is very moitvated and compliant with PT. Physical Therapy Plan Frequency and Duration Frequency of Treatment 2x/Week Duration of Treatment 2 months Plan of Care Start Date 09/14/19 Plan of Care End Date 11/15/19 Therapeutic Interventions Therapeutic Interventions Aquatic Therapy,Balance Training,Gait Training,Home Exercise Program,Joint Mobilizations,Manual Therapy, Neuromuscular Re-education, Patient/Caregiver Education, Self-Care/Home Management,Soft Tissue Mobilization,Taping, Therapeutic Activities, Therapeutic Exercises Modalities Cold Pack/Ice Massage,Electric Stimulation,Hot Packs, Iontophoresis,Ultrasound Next Visit Focus/Plan Next Note Type Treatment Note Next Visit Plan cont to progress LE strengthening & knee ROM, STM as needed
--- NOTE | 2019-10-25 10:33 | PT.OTN ---
Current Diagnoses Unilateral primary osteoarthritis, right knee (10/25/19) Physical Therapy Treatment Note PT-OP-A Visit Information Start: 09/13/19 18:53 Freq: Status: Active Protocol: Document 10/25/19 09:05 [facility] (Rec: 10/25/19 10:32 [facility] [id number]) Out-Patient Physical Therapy Visit Information Visit Information Visit Type Treatment Note Visit Start Time 09:03 Visit Stop Time 09:52 Total Visit Minutes 49 Visit Number 7 Number of HR PAYROLL COORDINATOR Visits 0 PT-OP-B Current Condition Start: 09/13/19 18:53 Freq: Status: Active Protocol: Document 09/14/19 08:14 [facility] (Rec: 09/14/19 09:57 [facility] [id number]) Current Condition History of Current Condition Onset Date Sep 08 2019 Current Complaints s/p R partial knee replacement History of Current Condition Pt reports she is progressing well with dec meds and progressing with activity at home. She does not always use the walker. She normally does hiking, walking and water aerobics and gardens a lot. Pt reprots starting feeling better but has done 700-2000 steps the past few days. Prior Treatments and Tests L partial knee replacement, L hip replacement (post), osteopenia, arthritis, L wrist fx 6 years ago, 2 years ago L radius & ulna fx d/t falls Treatment Goals Patient/Caregiver Goals return hiking, walking, water aerobics gardening PT-OP-C Subjective Start: 09/13/19 18:53 Freq: Status: Active Protocol: Document 10/25/19 09:05 [facility] (Rec: 10/25/19 10:32 [facility] [id number]) OP-PT Subjective Patient Comments Patient Comments Pt reports she wants help to get up/down from the ground. Patient Reported Progress Improving PT-OP-F Manual Assessment Start: 09/13/19 18:53 Freq: Status: Active Protocol: Document 09/14/19 08:14 [facility] (Rec: 09/14/19 09:57 [facility] [id number]) Manual Assessments Soft Tissue Assessment Soft Tissue Mobility Assessment bruising on thigh and calf and around knee so not tested PT-OP-G Mobility & Gait Start: 09/13/19 18:53 Freq: Status: Active Protocol: Document 09/14/19 08:14 [facility] (Rec: 09/14/19 09:57 [facility] [id number]) OP Gait Assessment Comments Gait Comments Pt presents amb with FWW with even wt bearing. W/o AD no limping but lat hip shift with dec overall push off B PT-OP-K Range of Motion Start: 09/13/19 18:53 Freq: Status: Active Protocol: Document 10/12/19 09:04 [facility] (Rec: 10/12/19 09:52 [facility] [id number]) Knee Goniometric Range of Motion Knee Right Flexion Active (degrees) 116 Extension Active (degrees) 0 PT-OP-M Strength Start: 09/13/19 18:53 Freq: Status: Active Protocol: Document 10/12/19 09:04 [facility] (Rec: 10/12/19 09:52 [facility] [id number]) Hip Strength Hip Manual Muscle Testing Left Flexion (L2) 4 Good Extension (S1) 4 Good Abduction 4+ Good+ Adduction 5 Normal External Rotation 4 Good Internal Rotation 5 Normal Right Flexion (L2) 4 Good Extension (S1) 3+ Fair+ Abduction 4 Good Adduction 5 Normal External Rotation 4+ Good+ Internal Rotation 4+ Good+ Knee Strength Knee Manual Muscle Testing Left Flexion (S2) 5 Normal Extension (L3) 5 Normal Right Flexion (S2) 5 Normal Extension (L3) 4+ Good+ Ankle/Foot Strength Ankle and Foot Manual Muscle Testing Left Dorsiflexion (L4) 5 Normal Plantarflexion (S1) 5 Normal Right Dorsiflexion (L4) 5 Normal Plantarflexion (S1) 5 Normal Comments PF tested in standing PT-OP-Q Treatments Start: 09/13/19 18:53 Freq: Status: Active Protocol: Document 10/25/19 09:05 [facility] (Rec: 10/25/19 10:32 [facility] [id number]) Cardio Equipment Recumbent Bicycle Duration (Minutes) 6 Resistance 6 Seat Position 4 Therapeutic Exercises Standing Exercises lunges Standing Exercise Name mini stationary Side bilateral Reps/Minutes 10 squat Standing Exercise Name sit to stands progressed to squats at counter w/chair behind Side bilateral Reps/Minutes 2x10 Therapeutic Activity Therapeutic Activity up/down from ground Name edu w/how to use a chair w/ lunge Manual Therapy Treatment Soft Tissue Mobilization scar tissue Mobilization Type Cross-Friction,Rolling, Strumming,Sustained Pressure Intensity/Depth Moderate Comments knee fex & ext position Neuro Re-Education Treatment Balance Activities SLS Details B focus on no lat lean tandem Details stance B PT-OP-R Modalities Start: 09/13/19 18:53 Freq: Status: Active Protocol: Document 10/25/19 09:05 [facility] (Rec: 10/25/19 10:32 [facility] [id number]) Hot Pack/Cold Pack Treatment Cold Pack Location ant & post R knee Patient Position Hooklying Treatment Duration (minutes) 10 PT-OP-T Assessment and Plan Start: 09/13/19 18:53 Freq: Status: Active Protocol: Document 10/25/19 09:05 [facility] (Rec: 10/25/19 10:32 [facility] [id number]) Physical Therapy Assessment Goals activities Short Term Goal (STG) Pt will return to walking short distance 3x/week without inc pain and no AD. 10/12- STG Duration achieved Chief Pilot Goal (LTG) Pt will be able to return to hiking, walking, and water aerobics actvities as she typically would without inc knee pain. LTG Duration 11/15/19 ROM Short Term Goal (STG) Pt will improve knee ROM to 0- 125 to allow improvement with activity ability. 10/12-significant improvement STG Duration 10/19/19 Skilled Nursing Goal (LTG) Pt will be able to get up/down from ground without inc pain in order to allow return to gardening activity. LTG Duration 11/15/19 strength Short Term Goal (STG) Pt will be indep with HEP STG Duration achieved Chief Pilot Goal (LTG) Pt will have 5/5 LE strength and LPM to show improved stability and allow her to return to her typical activties without difficulty or pain. 10/12-significantly improved LE strength LTG Duration 11/15/19 LEFS Impairment 28/80 Short Term Goal (STG) Pt will improve to 45/80 on LEFS in order to showe improved functional ability. STG Duration achieved Skilled Nursing Goal (LTG) Pt will improve to 60/80 on LEFS to show ability to return to her typical activity ability. LTG Duration 11/19/19 Assessment Summary Assessment Pt had 0-120 at start of session and improved to 127 deg flex after treatment. She was educated on self scar massage and demonstrated understanding. Able to get up/ down from ground w/UE support and was able to do lunges and squats with cueing. Physical Therapy Plan Frequency and Duration Frequency of Treatment 2x/Week Duration of Treatment 2 months Plan of Care Start Date 09/14/19 Plan of Care End Date 11/15/19 Next Visit Focus/Plan Next Note Type Treatment Note Next Visit Plan cont to progress LE strengthening & knee ROM, STM as needed
--- NOTE | 2019-11-08 09:49 | PT.OTN ---
Current Diagnoses Unilateral primary osteoarthritis, right knee (11/08/19) Physical Therapy Treatment Note PT-OP-A Visit Information Start: 09/13/19 18:53 Freq: Status: Active Protocol: Document 11/08/19 09:06 [facility] (Rec: 11/08/19 09:48 [facility] [id number]) Out-Patient Physical Therapy Visit Information Visit Information Visit Type Progress Note Visit Start Time 09:02 Visit Stop Time 09:52 Total Visit Minutes 50 Visit Number 8 Number of CLINICAL INFORMATICS SPEC Visits 0 PT-OP-B Current Condition Start: 09/13/19 18:53 Freq: Status: Active Protocol: Document 09/14/19 08:14 [facility] (Rec: 09/14/19 09:57 [facility] [id number]) Current Condition History of Current Condition Onset Date Sep 08 2019 Current Complaints s/p R partial knee replacement History of Current Condition Pt reports she is progressing well with dec meds and progressing with activity at home. She does not always use the walker. She normally does hiking, walking and water aerobics and gardens a lot. Pt reprots starting feeling better but has done 700-2000 steps the past few days. Prior Treatments and Tests L partial knee replacement, L hip replacement (post), osteopenia, arthritis, L wrist fx 6 years ago, 2 years ago L radius & ulna fx d/t falls Treatment Goals Patient/Caregiver Goals return hiking, walking, water aerobics gardening PT-OP-C Subjective Start: 09/13/19 18:53 Freq: Status: Active Protocol: Document 11/08/19 09:06 [facility] (Rec: 11/08/19 09:48 [facility] [id number]) OP-PT Subjective Patient Comments Patient Comments Pt reports her calf has been bother ing her since she stepped down missing a step at her friends house and stpped down hard. PT-OP-F Manual Assessment Start: 09/13/19 18:53 Freq: Status: Active Protocol: Document 09/14/19 08:14 [facility] (Rec: 09/14/19 09:57 [facility] [id number]) Manual Assessments Soft Tissue Assessment Soft Tissue Mobility Assessment bruising on thigh and calf and around knee so not tested PT-OP-G Mobility & Gait Start: 09/13/19 18:53 Freq: Status: Active Protocol: Document 09/14/19 08:14 [facility] (Rec: 09/14/19 09:57 [facility] [id number]) OP Gait Assessment Comments Gait Comments Pt presents amb with FWW with even wt bearing. W/o AD no limping but lat hip shift with dec overall push off B PT-OP-K Range of Motion Start: 09/13/19 18:53 Freq: Status: Active Protocol: Document 10/12/19 09:04 [facility] (Rec: 10/12/19 09:52 [facility] [id number]) Knee Goniometric Range of Motion Knee Right Flexion Active (degrees) 116 Extension Active (degrees) 0 PT-OP-M Strength Start: 09/13/19 18:53 Freq: Status: Active Protocol: Document 11/08/19 09:06 [facility] (Rec: 11/08/19 09:48 [facility] [id number]) Hip Strength Hip Manual Muscle Testing Left Flexion (L2) 4 Good Extension (S1) 4 Good Abduction 4+ Good+ External Rotation 4 Good Internal Rotation 5 Normal Right Flexion (L2) 4 Good Extension (S1) 3+ Fair+ Abduction 5 Normal External Rotation 4+ Good+ Internal Rotation 5 Normal Knee Strength Knee Manual Muscle Testing Right Flexion (S2) 5 Normal Extension (L3) 5 Normal PT-OP-Q Treatments Start: 09/13/19 18:53 Freq: Status: Active Protocol: Document 11/08/19 09:06 [facility] (Rec: 11/08/19 09:48 [facility] [id number]) Cardio Equipment Recumbent Bicycle Duration (Minutes) 3 Resistance 6 Seat Position 4 Bicycle (Upright) Duration (Minutes) 5 Resistance 5 Seat Position 4 Therapeutic Exercises Standing Exercises stretch Standing Exercise Name standing on ground, against wall & stair & Patrica Reps/Minutes 30 sec ea lunges Standing Exercise Name mini stationary Side bilateral Reps/Minutes 10 Comments also 1x up/down from ground squat Standing Exercise Name comfortable range Side bilateral Reps/Minutes 2x10 Manual Therapy Treatment Soft Tissue Mobilization scar tissue Mobilization Type Cross-Friction,Rolling, Strumming,Sustained Pressure Intensity/Depth Moderate Comments knee fex & ext position PT-OP-R Modalities Start: 09/13/19 18:53 Freq: Status: Active Protocol: Document 11/08/19 09:06 [facility] (Rec: 11/08/19 09:48 [facility] [id number]) Hot Pack/Cold Pack Treatment Cold Pack Location ant & post R knee Patient Position Hooklying Treatment Duration (minutes) 10 PT-OP-T Assessment and Plan Start: 09/13/19 18:53 Freq: Status: Active Protocol: Document 11/08/19 09:06 [facility] (Rec: 11/08/19 09:48 [facility] [id number]) Physical Therapy Assessment Goals activities Short Term Goal (STG) Pt will return to walking short distance 3x/week without inc pain and no AD. 10/12- STG Duration achieved Tarring Machine Operator Goal (LTG) Pt will be able to return to hiking, walking, and water aerobics actvities as she typically would without inc knee pain. /-Pt has walked 1.5 miles but no hiking. Has not gone to water aerobics but did water walk LTG Duration 12/22/19 ROM Short Term Goal (STG) Pt will improve knee ROM to 0- 125 to allow improvement with activity ability. 10/12-significant improvement STG Duration achieved Mcfp Goal (LTG) Pt will be able to get up/down from ground without inc pain in order to allow return to gardening activity. 2/-able to without outside support but some pain LTG Duration 12/22/19 strength Short Term Goal (STG) Pt will be indep with HEP STG Duration achieved Mcfp Goal (LTG) Pt will have 5/5 LE strength and LPM to show improved stability and allow her to return to her typical activties without difficulty or pain. 10/12-significantly improved LE strength 2/-improving LTG Duration 01/07/20 LEFS Impairment 28/80 Short Term Goal (STG) Pt will improve to 45/80 on LEFS in order to showe improved functional ability. STG Duration achieved Tarring Machine Operator Goal (LTG) Pt will improve to 60/80 on LEFS to show ability to return to her typical activity ability. LTG Duration 11/19/19 Assessment Summary Assessment Pt had 0-125 deg ROM and cont to improve with her functional ability to participate in activities. She was instructed to call re: her recent calf pain but does not relief with stretching. She cont to have some LE swelling in RLE. Physical Therapy Plan Frequency and Duration Frequency of Treatment 1x/Week Duration of Treatment 2 months Plan of Care Start Date 11/08/19 Plan of Care End Date 01/07/20 Therapeutic Interventions Therapeutic Interventions Aquatic Therapy,Balance Training,Gait Training,Home Exercise Program,Joint Mobilizations,Manual Therapy, Neuromuscular Re-education, Patient/Caregiver Education, Self-Care/Home Management,Soft Tissue Mobilization,Taping, Therapeutic Activities, Therapeutic Exercises Modalities Cold Pack/Ice Massage,Electric Stimulation,Hot Packs, Iontophoresis,Ultrasound Next Visit Focus/Plan Next Note Type Treatment Note Next Visit Plan cont to progress LE strengthening & knee ROM, STM as needed
--- NOTE | 2019-11-08 09:49 | PT.OPPOC ---
Physical, Occupational & Speech Therapy At [facility] Current Diagnoses Unilateral primary osteoarthritis, right knee (11/08/19) Visit Care Team Role Provider Type CHIVO Layton Primary Care Provider Non-Staff Specialty: Medical Address: [address] [place], [address] Email: Cosmo Ferguson MD Attending Provider Non-Staff Specialty: Orthopedics Address: [address] [place] [address], [address] Email: Plan Of Care PT-OP-T Assessment and Plan Start: 09/13/19 18:53 Freq: Status: Active Protocol: Document 11/08/19 09:06 [facility] (Rec: 11/08/19 09:48 [facility] [id number]) Physical Therapy Assessment Goals activities Short Term Goal (STG) Pt will return to walking short distance 3x/week without inc pain and no AD. 10/12- STG Duration achieved Rocket Scientist Goal (LTG) Pt will be able to return to hiking, walking, and water aerobics actvities as she typically would without inc knee pain. 2/5-Pt has walked 1.5 miles but no hiking. Has not gone to water aerobics but did water walk LTG Duration 12/22/19 ROM Short Term Goal (STG) Pt will improve knee ROM to 0- 125 to allow improvement with activity ability. 10/12-significant improvement STG Duration achieved Rocket Scientist Goal (LTG) Pt will be able to get up/down from ground without inc pain in order to allow return to gardening activity. 2/5-able to without outside support but some pain LTG Duration 12/22/19 strength Short Term Goal (STG) Pt will be indep with HEP STG Duration achieved Penitentiary Goal (LTG) Pt will have 5/5 LE strength and LPM to show improved stability and allow her to return to her typical activties without difficulty or pain. 10/12-significantly improved LE strength 2/5-improving LTG Duration 01/07/20 LEFS Impairment 28/80 Short Term Goal (STG) Pt will improve to 45/80 on LEFS in order to showe improved functional ability. STG Duration achieved Rocket Scientist Goal (LTG) Pt will improve to 60/80 on LEFS to show ability to return to her typical activity ability. LTG Duration 11/19/19 Assessment Summary Assessment Pt had 0-125 deg ROM and cont to improve with her functional ability to participate in activities. She was instructed to call re: her recent calf pain but does not relief with stretching. She cont to have some LE swelling in RLE. Physical Therapy Plan Frequency and Duration Frequency of Treatment 1x/Week Duration of Treatment 2 months Plan of Care Start Date 11/08/19 Plan of Care End Date 01/07/20 Therapeutic Interventions Therapeutic Interventions Aquatic Therapy,Balance Training,Gait Training,Home Exercise Program,Joint Mobilizations,Manual Therapy, Neuromuscular Re-education, Patient/Caregiver Education, Self-Care/Home Management,Soft Tissue Mobilization,Taping, Therapeutic Activities, Therapeutic Exercises Modalities Cold Pack/Ice Massage,Electric Stimulation,Hot Packs, Iontophoresis,Ultrasound Next Visit Focus/Plan Next Note Type Treatment Note Next Visit Plan cont to progress LE strengthening & knee ROM, STM as needed Plan of Care Dates Plan of Care Start Date 11/08/19 Plan of Care End Date 01/07/20 Electronically Signed by: Jasmyne Beltre, PT 11/08/19 0949 Please Sign and Return: I have reviewed this Plan of Care and certify that the skilled therapy services above are required to meet the patient?s needs. Physician Signature Date Printed Name and Credentials Clinical Instructor Signature Printed Name and Credentials
--- NOTE | 2019-11-27 13:21 | PT.OPDS ---
Current Diagnoses Unilateral primary osteoarthritis, right knee (11/08/19) Visit Care Team Role Provider Type CHIVO Layton Primary Care Provider Non-Staff Specialty: Medical Address: [address] [place], [address] Email: Cosmo Ferguson MD Attending Provider Non-Staff Specialty: Orthopedics Address: [address] [place] [address], [id number] Email: Visit Number Visit Number 8 Discharge Summary PT-OP-M Strength Start: 09/13/19 18:53 Freq: Status: Active Protocol: Document 11/08/19 09:06 [facility] (Rec: 11/08/19 09:48 [facility] [id number]) Hip Strength Hip Manual Muscle Testing Left Flexion (L2) 4 Good Extension (S1) 4 Good Abduction 4+ Good+ External Rotation 4 Good Internal Rotation 5 Normal Right Flexion (L2) 4 Good Extension (S1) 3+ Fair+ Abduction 5 Normal External Rotation 4+ Good+ Internal Rotation 5 Normal Knee Strength Knee Manual Muscle Testing Right Flexion (S2) 5 Normal Extension (L3) 5 Normal PT-OP-T Assessment and Plan Start: 09/13/19 18:53 Freq: Status: Active Protocol: Document 11/27/19 13:19 [facility] (Rec: 11/27/19 13:21 [facility] [id number]) Physical Therapy Assessment Goals activities Short Term Goal (STG) Pt will return to walking short distance 3x/week without inc pain and no AD. 10/12- STG Duration achieved Tmh Teacher Goal (LTG) Pt will be able to return to hiking, walking, and water aerobics actvities as she typically would without inc knee pain. 2/-Pt has walked 1.5 miles but no hiking. Has not gone to water aerobics but did water walk LTG Duration 12/22/19 ROM Short Term Goal (STG) Pt will improve knee ROM to 0- 125 to allow improvement with activity ability. 10/12-significant improvement STG Duration achieved [facility]cf Goal (LTG) Pt will be able to get up/down from ground without inc pain in order to allow return to gardening activity. 2/5-able to without outside support but some pain LTG Duration 12/22/19 strength Short Term Goal (STG) Pt will be indep with HEP STG Duration achieved Tmh Teacher Goal (LTG) Pt will have 5/5 LE strength and LPM to show improved stability and allow her to return to her typical activties without difficulty or pain. 10/12-significantly improved LE strength 2/-improving LTG Duration 01/07/20 LEFS Impairment 28/80 Short Term Goal (STG) Pt will improve to 45/80 on LEFS in order to showe improved functional ability. STG Duration achieved [facility] Goal (LTG) Pt will improve to 60/80 on LEFS to show ability to return to her typical activity ability. LTG Duration 11/19/19 Assessment Summary Assessment Pt called and asked for d/c as she feels indep with HEP and doing well on her own. She has been slowly progressing back to her typical activities with good success so far. D/C at this time. Physical Therapy Plan Discharge Physical Therapy Discharge Reasons Patient Request
== END 2019-11-28 08:56 ==
LOC: PHYS 09:00
PROVIDERS: PCP Nurse Practitioner Family; Visit Provider Orthopaedic Surgery
DX: M17.11 Unilateral primary osteoarthritis, right knee (principal)
CPT/HCPCS: 97010; 97110; 97112; 97116; 97140; 97161; 97530; 97535

== ENCOUNTER 2020-04-15 08:15 | Outpatient (RCR) | payer OTHER, SELFPAY ==
--- NOTE | 2020-03-11 12:55 | PT.OIE ---
Current Diagnoses Pain in right knee (03/11/20) Difficulty in walking, not elsewhere classified (03/11/20) Weakness (03/11/20) Visit Care Team Role Provider Type CHIVO Layton Primary Care Provider Non-Staff Specialty: Medical Address: [address] [place] [address], [id number] Email: Bridget Friedman MD Attending Provider Physician Referring Provider Specialty: Family Practice Address: [address] [place] [address], [address] Email: [email or web address] Therapy Initial Evaluation PT-OP-A Visit Information Start: 03/11/20 08:11 Freq: Status: Active Protocol: Document 03/11/20 08:13 [facility] (Rec: 03/11/20 09:05 [facility] [id number]) Out-Patient Physical Therapy Visit Information Visit Information Visit Type Initial Evaluation Visit Note 10/13 Visit Start Time 08:18 Visit Stop Time 09:00 Total Visit Minutes 42 Visit Number 1 Number of TECHNICAL SUPPORT ASSISTANT Visits 0 PT-OP-B Current Condition Start: 03/11/20 08:11 Freq: Status: Active Protocol: Document 03/11/20 08:13 [facility] (Rec: 03/11/20 09:05 [facility] [id number]) Current Condition History of Current Condition Onset Date 6 weeks ago worse, partial knee replacement Sep 2019 Current Complaints R knee pain History of Current Condition Pt had partial R knee replacement in Sep 2019. Pt had some pain about 6 weeks ago down back of leg that improved but she would relieve it with bending over at back or bringing R knee to chest. Pt reports pain and stiffness when she first gets up in R leg. Pt reports once she gets moving around, it gets better. Pt reports sensitivity in post knee. Pt has avoided kneeling recently d/t concern of pain. Prior Treatments and Tests PT after surgery that helped Treatment Goals Patient/Caregiver Goals get appropriate stretches and dec pain Personal Factors Other Personal Factors That May Effect Positive COVID in December, R Therapy/Recovery partial knee replacement, osteoperosis, skin cancer, arthritis, pain in 2 toes on L foot for past 2-3 months, L partial knee replacement, L post hip replacement PT-OP-C Subjective Start: 03/11/20 08:11 Freq: Status: Active Protocol: Document 03/11/20 08:13 [facility] (Rec: 03/11/20 09:05 [facility] [id number]) Patient Questionnaires Lower Extremity Functional Scale LEFS Score 58 OP-PT Pain Assessment Location R knee Pain Location Details Post and ant knee Intensity 3 Scale Used 5-6/10 with twist Description Sharp Description- Other stiffness Frequency Daily Pain Duration goes away immediately after twisting pain, 20 min break after long standing Pain Aggravating Factors Standing Other Pain Aggravating Factors twisting, first thing in AM, squating, stairs, up/down hills Pain Alleviating Factors Exercise Other Pain Alleviating Factors put feet up, tylenol PT-OP-F Manual Assessment Start: 03/11/20 08:11 Freq: Status: Active Protocol: Document 03/11/20 08:13 [facility] (Rec: 03/11/20 09:05 [facility] [id number]) Manual Assessments Soft Tissue Assessment Soft Tissue Mobility Assessment tenderness with palpation to proximal R calf, tightness in ITB, VL, HS Joint Mobility Assessment Joint Mobility Assessment even iliac crests & greater trochanters; ER tibia & femur R> L PT-OP-G Mobility & Gait Start: 03/11/20 08:11 Freq: Status: Active Protocol: Document 03/11/20 08:13 [facility] (Rec: 03/11/20 09:05 [facility] [id number]) OP Gait Assessment Comments Gait Comments ER of RLE and pelvis with push off PT-OP-J Posture/Palpation/Skin Start: 03/11/20 08:11 Freq: Status: Active Protocol: Document 03/11/20 08:13 [facility] (Rec: 03/11/20 09:05 [facility] [id number]) Posture Evaluation [facility] Postural Classification System Lumbar Protective Mechanism Left AP 1 Lumbar Protective Mechanism Right AP 2 Lumbar Protective Mechanism Left PA 4 Lumbar Protective Mechanism Right PA 2 PT-OP-K Range of Motion Start: 03/11/20 08:11 Freq: Status: Active Protocol: Document 03/11/20 08:13 [facility] (Rec: 03/11/20 09:05 [facility] [id number]) Knee Goniometric Range of Motion Knee Right Flexion Active (degrees) 120 Extension Active (degrees) 0 PT-OP-M Strength Start: 03/11/20 08:11 Freq: Status: Active Protocol: Document 03/11/20 08:13 [facility] (Rec: 03/11/20 09:05 [facility] [id number]) Hip Strength Hip Manual Muscle Testing Left Flexion (L2) 4 Good Extension (S1) 3+ Fair+ Abduction 4- Good- Adduction 5 Normal External Rotation 4 Good Internal Rotation 4 Good Right Flexion (L2) 4 Good Extension (S1) 3+ Fair+ Abduction 4- Good- Adduction 5 Normal External Rotation 4 Good Internal Rotation 4+ Good+ Knee Strength Knee Manual Muscle Testing Left Flexion (S2) 5 Normal Extension (L3) 5 Normal Right Flexion (S2) 4+ Good+ Extension (L3) 4+ Good+ Ankle/Foot Strength Ankle and Foot Manual Muscle Testing Left Dorsiflexion (L4) 5 Normal Plantarflexion (S1) 5 Normal Right Dorsiflexion (L4) 4+ Good+ Plantarflexion (S1) 5 Normal PT-OP-Q Treatments Start: 03/11/20 08:11 Freq: Status: Active Protocol: Document 03/11/20 08:13 [facility] (Rec: 03/11/20 09:05 [facility] [id number]) Therapeutic Exercises Sidelying Exercises hip abd Side right Reps/Minutes 10 Standing Exercises squat Standing Exercise Name mini at sink Side bilateral Reps/Minutes 10 Comments attempted over chair but painful PT-OP-T Assessment and Plan Start: 03/11/20 08:11 Freq: Status: Active Protocol: Document 03/11/20 08:13 [facility] (Rec: 03/11/20 09:05 [facility] [id number]) Physical Therapy Assessment Rehab Potential Rehabilitation Potential Good Evaluation Complexity Number of Personal Factors/Comorbidities 3 or More Number of Body Systems Impaired 4 or More Clinical Presentation at Evaluation Evolving Impairments Impairments Activity Tolerance,Balance, Functional Activities, Functional Mobility,Gait,Pain, Posture,ROM,Soft Tissue Mobility,Strength Goals activities Short Term Goal (STG) Pt will be able to go up/down stairs reciprocally without pain. STG Duration 04/10/20 Foundry Helper Goal (LTG) pt will be able to stand as long as needed without requiring a 20 min break d/t pain and fatigue. LTG Duration 05/11/20 strength Short Term Goal (STG) Pt will be indep with HEP STG Duration 04/10/20 Penitentiary Goal (LTG) Pt will have 5/5 LE strength and LPM to show improved stability and allow her to return to her typical activties without difficulty or pain. LTG Duration 05/11/20 LEFS Impairment 58/80 Foundry Helper Goal (LTG) Pt will improve to 67/80 on LEFS to show ability to return to her typical activity ability. 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 She is very active and wants to maintain her activity level and be able to do her typical daily activities without pain. She has some hip weakness and impaired movement mechanics and would benefit from PT to work on thsese deficits to improve her ability to daily activities and decrease her pain. Physical Therapy Plan Frequency and Duration Frequency of Treatment 1-2x/week Duration of Treatment 2 months Plan of Care Start Date 03/11/20 Plan of Care End Date 05/11/20 Therapeutic Interventions Therapeutic Interventions Aquatic Therapy,Balance Training,Gait Training,Home Exercise Program,Joint Mobilizations,Manual Therapy, Neuromuscular Re-education, Patient/Caregiver Education, Self-Care/Home Management,Soft Tissue Mobilization,Taping, Therapeutic Activities, Therapeutic Exercises Modalities Cold Pack/Ice Massage,Electric Stimulation,Hot Packs, Infrared Therapy,Iontophoresis ,Ultrasound Next Visit Focus/Plan Next Note Type Treatment Note Next Visit Plan mini lunges, TKE in prone, manual treamtent for soft tissue of calf and HS & patellar mobility.
--- NOTE | 2020-03-11 12:55 | PT.OPPOC ---
Physical, Occupational & Speech Therapy At [facility] Current Diagnoses Pain in right knee (03/11/20) Difficulty in walking, not elsewhere classified (03/11/20) Weakness (03/11/20) Visit Care Team Role Provider Type CHIVO Layton Primary Care Provider Non-Staff Specialty: Medical Address: [address] [place] [address], [address] Email: Bridget Friedman MD Attending Provider Physician Referring Provider Specialty: Family Practice Address: [address] [place] [address], [place], [address] Email: [email or web address] Plan Of Care PT-OP-T Assessment and Plan Start: 03/11/20 08:11 Freq: Status: Active Protocol: Document 03/11/20 08:13 [facility] (Rec: 03/11/20 09:05 [facility] [id number]) Physical Therapy Assessment Rehab Potential Rehabilitation Potential Good Evaluation Complexity Number of Personal Factors/Comorbidities 3 or More Number of Body Systems Impaired 4 or More Clinical Presentation at Evaluation Evolving Impairments Impairments Activity Tolerance,Balance, Functional Activities, Functional Mobility,Gait,Pain, Posture,ROM,Soft Tissue Mobility,Strength Goals activities Short Term Goal (STG) Pt will be able to go up/down stairs reciprocally without pain. STG Duration 04/10/20 Lath Tier Goal (LTG) pt will be able to stand as long as needed without requiring a 20 min break d/t pain and fatigue. LTG Duration 05/11/20 strength Short Term Goal (STG) Pt will be indep with HEP STG Duration 04/10/20 Detention Goal (LTG) Pt will have 5/5 LE strength and LPM to show improved stability and allow her to return to her typical activties without difficulty or pain. LTG Duration 05/11/20 LEFS Impairment 58/80 Lath Tier Goal (LTG) Pt will improve to 67/80 on LEFS to show ability to return to her typical activity ability. 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 She is very active and wants to maintain her activity level and be able to do her typical daily activities without pain. She has some hip weakness and impaired movement mechanics and would benefit from PT to work on thsese deficits to improve her ability to daily activities and decrease her pain. Physical Therapy Plan Frequency and Duration Frequency of Treatment 1-2x/week Duration of Treatment 2 months Plan of Care Start Date 03/11/20 Plan of Care End Date 05/11/20 Therapeutic Interventions Therapeutic Interventions Aquatic Therapy,Balance Training,Gait Training,Home Exercise Program,Joint Mobilizations,Manual Therapy, Neuromuscular Re-education, Patient/Caregiver Education, Self-Care/Home Management,Soft Tissue Mobilization,Taping, Therapeutic Activities, Therapeutic Exercises Modalities Cold Pack/Ice Massage,Electric Stimulation,Hot Packs, Infrared Therapy,Iontophoresis ,Ultrasound Next Visit Focus/Plan Next Note Type Treatment Note Next Visit Plan mini lunges, TKE in prone, manual treamtent for soft tissue of calf and HS & patellar mobility. Plan of Care Dates Plan of Care Start Date 03/11/20 Plan of Care End Date 05/11/20 Electronically Signed by: Jasmyne Beltre, PT 03/11/20 7080 Please Sign and Return: I have reviewed this Plan of Care and certify that the skilled therapy services above are required to meet the patient?s needs. Physician Signature Date Printed Name and Credentials Clinical Instructor Signature Printed Name and Credentials
--- NOTE | 2020-03-20 16:49 | PT.OTN ---
Current Diagnoses Pain in right knee (03/20/20) Difficulty in walking, not elsewhere classified (03/20/20) Weakness (03/20/20) Physical Therapy Treatment Note PT-OP-A Visit Information Start: 03/11/20 08:11 Freq: Status: Active Protocol: Document 03/20/20 15:59 [facility] (Rec: 03/20/20 16:47 [facility] [id number]) Out-Patient Physical Therapy Visit Information Visit Information Visit Type Treatment Note Visit Note 11/13 Visit Start Time 16:00 Visit Stop Time 16:53 Total Visit Minutes 53 Visit Number 2 Number of REPAIRER MAINTENANCE BUILDING Visits 0 PT-OP-B Current Condition Start: 03/11/20 08:11 Freq: Status: Active Protocol: Document 03/11/20 08:13 [facility] (Rec: 03/11/20 09:05 [facility] [id number]) Current Condition History of Current Condition Onset Date 6 weeks ago worse, partial knee replacement Sep 2019 Current Complaints R knee pain History of Current Condition Pt had partial R knee replacement in Sep 2019. Pt had some pain about 6 weeks ago down back of leg that improved but she would relieve it with bending over at back or bringing R knee to chest. Pt reports pain and stiffness when she first gets up in R leg. Pt reports once she gets moving around, it gets better. Pt reports sensitivity in post knee. Pt has avoided kneeling recently d/t concern of pain. Prior Treatments and Tests PT after surgery that helped Treatment Goals Patient/Caregiver Goals get appropriate stretches and dec pain Personal Factors Other Personal Factors That May Effect Positive COVID in December, R Therapy/Recovery partial knee replacement, osteoperosis, skin cancer, arthritis, pain in 2 toes on L foot for past 2-3 months, L partial knee replacement, L post hip replacement PT-OP-C Subjective Start: 03/11/20 08:11 Freq: Status: Active Protocol: Document 03/20/20 15:59 [facility] (Rec: 03/20/20 16:47 [facility] [id number]) OP-PT Subjective Patient Comments Patient Comments Pt reports She is tired today. Pt reports she has only had one twinge since last time. Compliance with HEP. PT-OP-F Manual Assessment Start: 03/11/20 08:11 Freq: Status: Active Protocol: Document 03/11/20 08:13 [facility] (Rec: 03/11/20 09:05 [facility] [id number]) Manual Assessments Soft Tissue Assessment Soft Tissue Mobility Assessment tenderness with palpation to proximal R calf, tightness in ITB, VL, HS Joint Mobility Assessment Joint Mobility Assessment even iliac crests & greater trochanters; ER tibia & femur R> L PT-OP-G Mobility & Gait Start: 03/11/20 08:11 Freq: Status: Active Protocol: Document 03/11/20 08:13 [facility] (Rec: 03/11/20 09:05 [facility] [id number]) OP Gait Assessment Comments Gait Comments ER of RLE and pelvis with push off PT-OP-J Posture/Palpation/Skin Start: 03/11/20 08:11 Freq: Status: Active Protocol: Document 03/11/20 08:13 [facility] (Rec: 03/11/20 09:05 [facility] [id number]) Posture Evaluation [facility] Postural Classification System Lumbar Protective Mechanism Left AP 1 Lumbar Protective Mechanism Right AP 2 Lumbar Protective Mechanism Left PA 4 Lumbar Protective Mechanism Right PA 2 PT-OP-K Range of Motion Start: 03/11/20 08:11 Freq: Status: Active Protocol: Document 03/11/20 08:13 [facility] (Rec: 03/11/20 09:05 [facility] [id number]) Knee Goniometric Range of Motion Knee Right Flexion Active (degrees) 120 Extension Active (degrees) 0 PT-OP-M Strength Start: 03/11/20 08:11 Freq: Status: Active Protocol: Document 03/11/20 08:13 [facility] (Rec: 03/11/20 09:05 [facility] [id number]) Hip Strength Hip Manual Muscle Testing Left Flexion (L2) 4 Good Extension (S1) 3+ Fair+ Abduction 4- Good- Adduction 5 Normal External Rotation 4 Good Internal Rotation 4 Good Right Flexion (L2) 4 Good Extension (S1) 3+ Fair+ Abduction 4- Good- Adduction 5 Normal External Rotation 4 Good Internal Rotation 4+ Good+ Knee Strength Knee Manual Muscle Testing Left Flexion (S2) 5 Normal Extension (L3) 5 Normal Right Flexion (S2) 4+ Good+ Extension (L3) 4+ Good+ Ankle/Foot Strength Ankle and Foot Manual Muscle Testing Left Dorsiflexion (L4) 5 Normal Plantarflexion (S1) 5 Normal Right Dorsiflexion (L4) 4+ Good+ Plantarflexion (S1) 5 Normal PT-OP-Q Treatments Start: 03/11/20 08:11 Freq: Status: Active Protocol: Document 03/20/20 15:59 [facility] (Rec: 03/20/20 16:47 [facility] [id number]) Cardio Equipment Recumbent Bicycle Duration (Minutes) 5 Resistance 5 Seat Position 5 Therapeutic Exercises Prone Exercises TKE Prone Exercise Name prone Reps/Minutes 10 sec x5 Sidelying Exercises hip abd Side right Reps/Minutes 10x2 Standing Exercises lunge Standing Exercise Name mini at bar Side bilateral Reps/Minutes 10 squat Standing Exercise Name mini at sink Side bilateral Reps/Minutes 10 Comments attempted over chair but painful Manual Therapy Treatment Soft Tissue Mobilization HS Body Location HS lat & calf Med Mobilization Type Rolling,Sustained Pressure Body Position Prone Comments w/knee ext PT-OP-R Modalities Start: 03/11/20 08:11 Freq: Status: Active Protocol: Document 03/20/20 15:59 [facility] (Rec: 03/20/20 16:48 [facility] [id number]) Hot Pack/Cold Pack Treatment Cold Pack Location ant & post R knee Patient Position Hooklying Treatment Duration (minutes) 10 PT-OP-T Assessment and Plan Start: 03/11/20 08:11 Freq: Status: Active Protocol: Document 03/20/20 15:59 [facility] (Rec: 03/20/20 16:47 [facility] [id number]) Physical Therapy Assessment Goals activities Short Term Goal (STG) Pt will be able to go up/down stairs reciprocally without pain. STG Duration 04/10/20 Snf Goal (LTG) pt will be able to stand as long as needed without requiring a 20 min break d/t pain and fatigue. LTG Duration 05/11/20 strength Short Term Goal (STG) Pt will be indep with HEP STG Duration 04/10/20 Industrial Organization Manager Goal (LTG) Pt will have 5/5 LE strength and LPM to show improved stability and allow her to return to her typical activties without difficulty or pain. LTG Duration 05/11/20 LEFS Impairment 58/80 Industrial Organization Manager Goal (LTG) Pt will improve to 67/80 on LEFS to show ability to return to her typical activity ability. LTG Duration 05/11/20 Assessment Summary Assessment Pt required significant cueing with exercises for form and edu on why form was important. Improved hip ext after TKE exercise in prone and improved overall form after cueing with other exercises Physical Therapy Plan Frequency and Duration Frequency of Treatment 1-2x/week Duration of Treatment 2 months Plan of Care Start Date 03/11/20 Plan of Care End Date 05/11/20 Next Visit Focus/Plan Next Note Type Treatment Note Next Visit Plan review exercises as needed, cont to work on soft tissue & patellar mobility
--- NOTE | 2020-03-25 16:05 | PT.OTN ---
Current Diagnoses Pain in right knee (03/25/20) Difficulty in walking, not elsewhere classified (03/25/20) Weakness (03/25/20) Physical Therapy Treatment Note PT-OP-A Visit Information Start: 03/11/20 08:11 Freq: Status: Active Protocol: Document 03/25/20 15:19 [facility] (Rec: 03/25/20 16:04 [facility] [id number]) Out-Patient Physical Therapy Visit Information Visit Information Visit Type Treatment Note Visit Note 12/11 Visit Start Time 15:16 Visit Stop Time 15:58 Total Visit Minutes 42 Visit Number 3 Number of RENEWABLE ENERGY BROKER Visits 0 PT-OP-B Current Condition Start: 03/11/20 08:11 Freq: Status: Active Protocol: Document 03/11/20 08:13 [facility] (Rec: 03/11/20 09:05 [facility] [id number]) Current Condition History of Current Condition Onset Date 6 weeks ago worse, partial knee replacement Sep 2019 Current Complaints R knee pain History of Current Condition Pt had partial R knee replacement in Sep 2019. Pt had some pain about 6 weeks ago down back of leg that improved but she would relieve it with bending over at back or bringing R knee to chest. Pt reports pain and stiffness when she first gets up in R leg. Pt reports once she gets moving around, it gets better. Pt reports sensitivity in post knee. Pt has avoided kneeling recently d/t concern of pain. Prior Treatments and Tests PT after surgery that helped Treatment Goals Patient/Caregiver Goals get appropriate stretches and dec pain Personal Factors Other Personal Factors That May Effect Positive COVID in December, R Therapy/Recovery partial knee replacement, osteoperosis, skin cancer, arthritis, pain in 2 toes on L foot for past 2-3 months, L partial knee replacement, L post hip replacement PT-OP-C Subjective Start: 03/11/20 08:11 Freq: Status: Active Protocol: Document 03/25/20 15:19 [facility] (Rec: 03/25/20 16:04 [facility] [id number]) OP-PT Subjective Patient Comments Patient Comments Pt reports she feels like she young not have that much pain mostly some tiredness in mm around knee. Reports she feels stronger Patient Reported Progress Improving PT-OP-F Manual Assessment Start: 03/11/20 08:11 Freq: Status: Active Protocol: Document 03/11/20 08:13 [facility] (Rec: 03/11/20 09:05 [facility] [id number]) Manual Assessments Soft Tissue Assessment Soft Tissue Mobility Assessment tenderness with palpation to proximal R calf, tightness in ITB, VL, HS Joint Mobility Assessment Joint Mobility Assessment even iliac crests & greater trochanters; ER tibia & femur R> L PT-OP-G Mobility & Gait Start: 03/11/20 08:11 Freq: Status: Active Protocol: Document 03/11/20 08:13 [facility] (Rec: 03/11/20 09:05 [facility] [id number]) OP Gait Assessment Comments Gait Comments ER of RLE and pelvis with push off PT-OP-J Posture/Palpation/Skin Start: 03/11/20 08:11 Freq: Status: Active Protocol: Document 03/11/20 08:13 [facility] (Rec: 03/11/20 09:05 [facility] [id number]) Posture Evaluation [facility] Postural Classification System Lumbar Protective Mechanism Left AP 1 Lumbar Protective Mechanism Right AP 2 Lumbar Protective Mechanism Left PA 4 Lumbar Protective Mechanism Right PA 2 PT-OP-K Range of Motion Start: 03/11/20 08:11 Freq: Status: Active Protocol: Document 03/11/20 08:13 [facility] (Rec: 03/11/20 09:05 [facility] [id number]) Knee Goniometric Range of Motion Knee Right Flexion Active (degrees) 120 Extension Active (degrees) 0 PT-OP-M Strength Start: 03/11/20 08:11 Freq: Status: Active Protocol: Document 03/11/20 08:13 [facility] (Rec: 03/11/20 09:05 [facility] [id number]) Hip Strength Hip Manual Muscle Testing Left Flexion (L2) 4 Good Extension (S1) 3+ Fair+ Abduction 4- Good- Adduction 5 Normal External Rotation 4 Good Internal Rotation 4 Good Right Flexion (L2) 4 Good Extension (S1) 3+ Fair+ Abduction 4- Good- Adduction 5 Normal External Rotation 4 Good Internal Rotation 4+ Good+ Knee Strength Knee Manual Muscle Testing Left Flexion (S2) 5 Normal Extension (L3) 5 Normal Right Flexion (S2) 4+ Good+ Extension (L3) 4+ Good+ Ankle/Foot Strength Ankle and Foot Manual Muscle Testing Left Dorsiflexion (L4) 5 Normal Plantarflexion (S1) 5 Normal Right Dorsiflexion (L4) 4+ Good+ Plantarflexion (S1) 5 Normal PT-OP-Q Treatments Start: 03/11/20 08:11 Freq: Status: Active Protocol: Document 03/25/20 15:19 [facility] (Rec: 03/25/20 16:04 [facility] [id number]) Cardio Equipment Recumbent Bicycle Duration (Minutes) 5 Resistance 6 Seat Position 5 Therapeutic Exercises Prone Exercises TKE Prone Exercise Name prone Reps/Minutes 10 sec x5 Standing Exercises lunge Standing Exercise Name mini at bar Side bilateral Reps/Minutes 10 squat Standing Exercise Name mini at sink Side bilateral Reps/Minutes 10 Comments attempted over chair but painful Gait Training Gait Activity stairs Comments up and down stairs with appropriate wt shifting Manual Therapy Treatment Soft Tissue Mobilization scar tissue Mobilization Type Cross-Friction,Rolling, Strumming,Sustained Pressure Intensity/Depth Moderate Comments knee fex & ext position quadriceps Body Location patellar tendon Mobilization Type Rolling,Strumming PT-OP-R Modalities Start: 03/11/20 08:11 Freq: Status: Active Protocol: Document 03/20/20 15:59 [facility] (Rec: 03/20/20 16:48 [facility] [id number]) Hot Pack/Cold Pack Treatment Cold Pack Location ant & post R knee Patient Position Hooklying Treatment Duration (minutes) 10 PT-OP-T Assessment and Plan Start: 03/11/20 08:11 Freq: Status: Active Protocol: Document 03/25/20 15:19 [facility] (Rec: 03/25/20 16:04 [facility] [id number]) Physical Therapy Assessment Goals activities Short Term Goal (STG) Pt will be able to go up/down stairs reciprocally without pain. STG Duration 04/10/20 Chemical Laboratory Tester Goal (LTG) pt will be able to stand as long as needed without requiring a 20 min break d/t pain and fatigue. LTG Duration 05/11/20 strength Short Term Goal (STG) Pt will be indep with HEP STG Duration 04/10/20 Chemical Laboratory Tester Goal (LTG) Pt will have 5/5 LE strength and LPM to show improved stability and allow her to return to her typical activties without difficulty or pain. LTG Duration 05/11/20 LEFS Impairment 58/80 Chemical Laboratory Tester Goal (LTG) Pt will improve to 67/80 on LEFS to show ability to return to her typical activity ability. LTG Duration 05/11/20 Assessment Summary Assessment Pt had significantly improved form with squats and stairs after cueing and edu. Improved lunge form demonstrated today . Pt had improved passive flex after manual Physical Therapy Plan Frequency and Duration Frequency of Treatment 1-2x/week Duration of Treatment 2 months Plan of Care Start Date 03/11/20 Plan of Care End Date 05/11/20 Next Visit Focus/Plan Next Note Type Treatment Note Next Visit Plan review exercises as needed, cont to work on soft tissue & patellar mobility
--- NOTE | 2020-04-02 09:45 | PT.OTN ---
Current Diagnoses Pain in right knee (04/02/20) Difficulty in walking, not elsewhere classified (04/02/20) Weakness (04/02/20) Physical Therapy Treatment Note PT-OP-A Visit Information Start: 03/11/20 08:11 Freq: Status: Active Protocol: Document 04/02/20 09:03 [facility] (Rec: 04/02/20 09:45 [facility] [id number]) Out-Patient Physical Therapy Visit Information Visit Information Visit Type Treatment Note Visit Note 12/11 Visit Start Time 09:01 Visit Stop Time 09:51 Total Visit Minutes 50 Visit Number 4 Number of WELL DRILL OPERATOR ROTARY DRILL Visits 0 PT-OP-B Current Condition Start: 03/11/20 08:11 Freq: Status: Active Protocol: Document 03/11/20 08:13 [facility] (Rec: 03/11/20 09:05 [facility] [id number]) Current Condition History of Current Condition Onset Date 6 weeks ago worse, partial knee replacement Sep 2019 Current Complaints R knee pain History of Current Condition Pt had partial R knee replacement in Sep 2019. Pt had some pain about 6 weeks ago down back of leg that improved but she would relieve it with bending over at back or bringing R knee to chest. Pt reports pain and stiffness when she first gets up in R leg. Pt reports once she gets moving around, it gets better. Pt reports sensitivity in post knee. Pt has avoided kneeling recently d/t concern of pain. Prior Treatments and Tests PT after surgery that helped Treatment Goals Patient/Caregiver Goals get appropriate stretches and dec pain Personal Factors Other Personal Factors That May Effect Positive COVID in December, R Therapy/Recovery partial knee replacement, osteoperosis, skin cancer, arthritis, pain in 2 toes on L foot for past 2-3 months, L partial knee replacement, L post hip replacement PT-OP-C Subjective Start: 03/11/20 08:11 Freq: Status: Active Protocol: Document 04/02/20 09:03 [facility] (Rec: 04/02/20 09:45 [facility] [id number]) OP-PT Subjective Patient Comments Patient Comments Pt reports around 3-5am she is waking up and having inc difficulty sleeping d/t aching . She is noticing a difference between prone TKE PT-OP-F Manual Assessment Start: 03/11/20 08:11 Freq: Status: Active Protocol: Document 03/11/20 08:13 [facility] (Rec: 03/11/20 09:05 [facility] [id number]) Manual Assessments Soft Tissue Assessment Soft Tissue Mobility Assessment tenderness with palpation to proximal R calf, tightness in ITB, VL, HS Joint Mobility Assessment Joint Mobility Assessment even iliac crests & greater trochanters; ER tibia & femur R> L PT-OP-G Mobility & Gait Start: 03/11/20 08:11 Freq: Status: Active Protocol: Document 03/11/20 08:13 [facility] (Rec: 03/11/20 09:05 [facility] [id number]) OP Gait Assessment Comments Gait Comments ER of RLE and pelvis with push off PT-OP-J Posture/Palpation/Skin Start: 03/11/20 08:11 Freq: Status: Active Protocol: Document 03/11/20 08:13 [facility] (Rec: 03/11/20 09:05 [facility] [id number]) Posture Evaluation [facility] Postural Classification System Lumbar Protective Mechanism Left AP 1 Lumbar Protective Mechanism Right AP 2 Lumbar Protective Mechanism Left PA 4 Lumbar Protective Mechanism Right PA 2 PT-OP-K Range of Motion Start: 03/11/20 08:11 Freq: Status: Active Protocol: Document 03/11/20 08:13 [facility] (Rec: 03/11/20 09:05 [facility] [id number]) Knee Goniometric Range of Motion Knee Right Flexion Active (degrees) 120 Extension Active (degrees) 0 PT-OP-M Strength Start: 03/11/20 08:11 Freq: Status: Active Protocol: Document 03/11/20 08:13 [facility] (Rec: 03/11/20 09:05 [facility] [id number]) Hip Strength Hip Manual Muscle Testing Left Flexion (L2) 4 Good Extension (S1) 3+ Fair+ Abduction 4- Good- Adduction 5 Normal External Rotation 4 Good Internal Rotation 4 Good Right Flexion (L2) 4 Good Extension (S1) 3+ Fair+ Abduction 4- Good- Adduction 5 Normal External Rotation 4 Good Internal Rotation 4+ Good+ Knee Strength Knee Manual Muscle Testing Left Flexion (S2) 5 Normal Extension (L3) 5 Normal Right Flexion (S2) 4+ Good+ Extension (L3) 4+ Good+ Ankle/Foot Strength Ankle and Foot Manual Muscle Testing Left Dorsiflexion (L4) 5 Normal Plantarflexion (S1) 5 Normal Right Dorsiflexion (L4) 4+ Good+ Plantarflexion (S1) 5 Normal PT-OP-Q Treatments Start: 03/11/20 08:11 Freq: Status: Active Protocol: Document 04/02/20 09:03 [facility] (Rec: 04/02/20 09:45 [facility] [id number]) Cardio Equipment Recumbent Bicycle Duration (Minutes) 5 Resistance 6 Seat Position 5 Therapeutic Exercises Prone Exercises hip ext Side bilateral Reps/Minutes 10 sec x2 ea TKE Prone Exercise Name prone Reps/Minutes 10 sec x5 Standing Exercises lunge Standing Exercise Name mini at bar Side bilateral Reps/Minutes 10 Manual Therapy Treatment Soft Tissue Mobilization HS Body Location HS lat & calf Med Mobilization Type Rolling,Sustained Pressure Body Position Prone Comments w/knee ext quadriceps Body Location patellar tendon lat Mobilization Type Rolling,Strumming Joint Mobilizations hip Direction on axis ER FM PT-OP-R Modalities Start: 03/11/20 08:11 Freq: Status: Active Protocol: Document 04/02/20 09:03 [facility] (Rec: 04/02/20 09:45 [facility] [id number]) Hot Pack/Cold Pack Treatment Cold Pack Location ant & post R knee Patient Position Hooklying Treatment Duration (minutes) 10 PT-OP-T Assessment and Plan Start: 03/11/20 08:11 Freq: Status: Active Protocol: Document 04/02/20 09:03 [facility] (Rec: 04/02/20 09:45 [facility] [id number]) Physical Therapy Assessment Goals activities Short Term Goal (STG) Pt will be able to go up/down stairs reciprocally without pain. STG Duration 04/10/20 Fpc Goal (LTG) pt will be able to stand as long as needed without requiring a 20 min break d/t pain and fatigue. LTG Duration 05/11/20 strength Short Term Goal (STG) Pt will be indep with HEP STG Duration 04/10/20 Fpc Goal (LTG) Pt will have 5/5 LE strength and LPM to show improved stability and allow her to return to her typical activties without difficulty or pain. LTG Duration 05/11/20 LEFS Impairment 58/80 Employment Programs Analyst Goal (LTG) Pt will improve to 67/80 on LEFS to show ability to return to her typical activity ability. LTG Duration 05/11/20 Assessment Summary Assessment Pt improved with lunges but still required cueing for form with pelvis position. Pt did better with prone ext. exercise but was week with hip ext. Improved TKE in prone after manual Physical Therapy Plan Frequency and Duration Frequency of Treatment 1-2x/week Duration of Treatment 2 months Plan of Care Start Date 03/11/20 Plan of Care End Date 05/11/20 Next Visit Focus/Plan Next Note Type Treatment Note Next Visit Plan review exercises as needed, cont to work on soft tissue & patellar mobility
--- NOTE | 2020-04-09 11:17 | PT.OTN ---
Current Diagnoses Pain in right knee (04/09/20) Difficulty in walking, not elsewhere classified (04/09/20) Weakness (04/09/20) Physical Therapy Treatment Note PT-OP-A Visit Information Start: 03/11/20 08:11 Freq: Status: Active Protocol: Document 04/09/20 09:08 [facility] (Rec: 04/09/20 11:17 [facility] [id number]) Out-Patient Physical Therapy Visit Information Visit Information Visit Type Treatment Note Visit Note 01/11 Visit Start Time 09:04 Visit Stop Time 09:55 Total Visit Minutes 51 Visit Number 5 Number of PROFESSOR OF SPANISH Visits 0 PT-OP-B Current Condition Start: 03/11/20 08:11 Freq: Status: Active Protocol: Document 03/11/20 08:13 [facility] (Rec: 03/11/20 09:05 [facility] [id number]) Current Condition History of Current Condition Onset Date 6 weeks ago worse, partial knee replacement Sep 2019 Current Complaints R knee pain History of Current Condition Pt had partial R knee replacement in Sep 2019. Pt had some pain about 6 weeks ago down back of leg that improved but she would relieve it with bending over at back or bringing R knee to chest. Pt reports pain and stiffness when she first gets up in R leg. Pt reports once she gets moving around, it gets better. Pt reports sensitivity in post knee. Pt has avoided kneeling recently d/t concern of pain. Prior Treatments and Tests PT after surgery that helped Treatment Goals Patient/Caregiver Goals get appropriate stretches and dec pain Personal Factors Other Personal Factors That May Effect Positive COVID in December, R Therapy/Recovery partial knee replacement, osteoperosis, skin cancer, arthritis, pain in 2 toes on L foot for past 2-3 months, L partial knee replacement, L post hip replacement PT-OP-C Subjective Start: 03/11/20 08:11 Freq: Status: Active Protocol: Document 04/09/20 09:08 [facility] (Rec: 04/09/20 11:17 [facility] [id number]) OP-PT Subjective Patient Comments Patient Comments Pt reports she isn't noticing knee pains as much at night now. Noticing it after gardening when she has to go up/down a lot. She notes stiffness Patient Reported Progress Improving PT-OP-F Manual Assessment Start: 03/11/20 08:11 Freq: Status: Active Protocol: Document 03/11/20 08:13 [facility] (Rec: 03/11/20 09:05 [facility] [id number]) Manual Assessments Soft Tissue Assessment Soft Tissue Mobility Assessment tenderness with palpation to proximal R calf, tightness in ITB, VL, HS Joint Mobility Assessment Joint Mobility Assessment even iliac crests & greater trochanters; ER tibia & femur R> L PT-OP-G Mobility & Gait Start: 03/11/20 08:11 Freq: Status: Active Protocol: Document 03/11/20 08:13 [facility] (Rec: 03/11/20 09:05 [facility] [id number]) OP Gait Assessment Comments Gait Comments ER of RLE and pelvis with push off PT-OP-J Posture/Palpation/Skin Start: 03/11/20 08:11 Freq: Status: Active Protocol: Document 03/11/20 08:13 [facility] (Rec: 03/11/20 09:05 [facility] [id number]) Posture Evaluation [facility] Postural Classification System Lumbar Protective Mechanism Left AP 1 Lumbar Protective Mechanism Right AP 2 Lumbar Protective Mechanism Left PA 4 Lumbar Protective Mechanism Right PA 2 PT-OP-K Range of Motion Start: 03/11/20 08:11 Freq: Status: Active Protocol: Document 03/11/20 08:13 [facility] (Rec: 03/11/20 09:05 [facility] [id number]) Knee Goniometric Range of Motion Knee Right Flexion Active (degrees) 120 Extension Active (degrees) 0 PT-OP-M Strength Start: 03/11/20 08:11 Freq: Status: Active Protocol: Document 03/11/20 08:13 [facility] (Rec: 03/11/20 09:05 [facility] [id number]) Hip Strength Hip Manual Muscle Testing Left Flexion (L2) 4 Good Extension (S1) 3+ Fair+ Abduction 4- Good- Adduction 5 Normal External Rotation 4 Good Internal Rotation 4 Good Right Flexion (L2) 4 Good Extension (S1) 3+ Fair+ Abduction 4- Good- Adduction 5 Normal External Rotation 4 Good Internal Rotation 4+ Good+ Knee Strength Knee Manual Muscle Testing Left Flexion (S2) 5 Normal Extension (L3) 5 Normal Right Flexion (S2) 4+ Good+ Extension (L3) 4+ Good+ Ankle/Foot Strength Ankle and Foot Manual Muscle Testing Left Dorsiflexion (L4) 5 Normal Plantarflexion (S1) 5 Normal Right Dorsiflexion (L4) 4+ Good+ Plantarflexion (S1) 5 Normal PT-OP-Q Treatments Start: 03/11/20 08:11 Freq: Status: Active Protocol: Document 04/09/20 09:08 [facility] (Rec: 04/09/20 11:17 [facility] [id number]) Cardio Equipment Recumbent Bicycle Duration (Minutes) 5 Resistance 6 Seat Position 5 Therapeutic Exercises Standing Exercises lunge Standing Exercise Name mini at bar Side bilateral Reps/Minutes 10 squat Standing Exercise Name w/band around knees sit<>stand Reps/Minutes 10 Therapeutic Activity Therapeutic Activity sit<>stand Name manula faciliation of glutes B Comments traction pull w/seated wt shift to acceptance to [facility] Manual Therapy Treatment Soft Tissue Mobilization HS Body Location HS lat & calf Med Mobilization Type Rolling,Sustained Pressure Body Position Prone Comments w/knee ext PT-OP-R Modalities Start: 03/11/20 08:11 Freq: Status: Active Protocol: Document 04/09/20 09:08 [facility] (Rec: 04/09/20 11:17 [facility] [id number]) Hot Pack/Cold Pack Treatment Cold Pack Location ant & post R knee Patient Position Hooklying Treatment Duration (minutes) 10 PT-OP-T Assessment and Plan Start: 03/11/20 08:11 Freq: Status: Active Protocol: Document 04/09/20 09:08 [facility] (Rec: 04/09/20 11:17 [facility] [id number]) Physical Therapy Assessment Goals activities Short Term Goal (STG) Pt will be able to go up/down stairs reciprocally without pain. STG Duration 04/10/20 Cutter Operator Tile Goal (LTG) pt will be able to stand as long as needed without requiring a 20 min break d/t pain and fatigue. LTG Duration 05/11/20 strength Short Term Goal (STG) Pt will be indep with HEP STG Duration 04/10/20 Group Home Goal (LTG) Pt will have 5/5 LE strength and LPM to show improved stability and allow her to return to her typical activties without difficulty or pain. LTG Duration 05/11/20 LEFS Impairment 58/80 Group Home Goal (LTG) Pt will improve to 67/80 on LEFS to show ability to return to her typical activity ability. LTG Duration 05/11/20 Assessment Summary Assessment Pt cont to improve with lunges . Seh did better with squats iwth knee alignment with sit tostand with band around thighs to encourage neutral knee alignment. Physical Therapy Plan Frequency and Duration Frequency of Treatment 1-2x/week Duration of Treatment 2 months Plan of Care Start Date 03/11/20 Plan of Care End Date 05/11/20 Next Visit Focus/Plan Next Note Type Treatment Note Next Visit Plan review exercises as needed, cont to work on soft tissue & patellar mobility
--- NOTE | 2020-04-15 10:02 | PT.OTN ---
Current Diagnoses Pain in right knee (04/15/20) Difficulty in walking, not elsewhere classified (04/15/20) Weakness (04/15/20) Physical Therapy Treatment Note PT-OP-A Visit Information Start: 03/11/20 08:11 Freq: Status: Active Protocol: Document 04/15/20 08:23 [facility] (Rec: 04/15/20 10:01 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 (Rec: 03/11/20 09:05 [facility] [id number]) Current Condition History of Current Condition Onset Date 6 weeks ago worse, partial knee replacement Sep 2019 Current Complaints R knee pain History of Current Condition Pt had partial R knee replacement in Sep 2019. Pt had some pain about 6 weeks ago down back of leg that improved but she would relieve it with bending over at back or bringing R knee to chest. Pt reports pain and stiffness when she first gets up in R leg. Pt reports once she gets moving around, it gets better. Pt reports sensitivity in post knee. Pt has avoided kneeling recently d/t concern of pain. Prior Treatments and Tests PT after surgery that helped Treatment Goals Patient/Caregiver Goals get appropriate stretches and dec pain Personal Factors Other Personal Factors That May Effect Positive COVID in December, R Therapy/Recovery partial knee replacement, osteoperosis, skin cancer, arthritis, pain in 2 toes on L foot for past 2-3 months, L partial knee replacement, L post hip replacement PT-OP-C Subjective Start: 03/11/20 08:11 Freq: Status: Active Protocol: Document 04/15/20 08:23 [facility] (Rec: 04/15/20 10:01 [facility] [id number]) OP-PT Subjective Patient Comments Patient Comments Pt hiked [employer] and has hiked a total of 23 miles in the past week. Kness are doing very well. Ready for dc Patient Reported Progress Improving PT-OP-F Manual Assessment Start: 03/11/20 08:11 Freq: Status: Active Protocol: Document 03/11/20 08:13 [facility] (Rec: 03/11/20 09:05 [facility] [id number]) Manual Assessments Soft Tissue Assessment Soft Tissue Mobility Assessment tenderness with palpation to proximal R calf, tightness in ITB, VL, HS Joint Mobility Assessment Joint Mobility Assessment even iliac crests & greater trochanters; ER tibia & femur R> L PT-OP-G Mobility & Gait Start: 03/11/20 08:11 Freq: Status: Active Protocol: Document 03/11/20 08:13 [facility] (Rec: 03/11/20 09:05 [facility] [id number]) OP Gait Assessment Comments Gait Comments ER of RLE and pelvis with push off PT-OP-J Posture/Palpation/Skin Start: 03/11/20 08:11 Freq: Status: Active Protocol: Document 04/15/20 08:23 [facility] (Rec: 04/15/20 10:01 [facility] [id number]) Posture Evaluation [facility] Postural Classification System Lumbar Protective Mechanism Left AP 1 Lumbar Protective Mechanism Right AP 2 Lumbar Protective Mechanism Left PA 4 Lumbar Protective Mechanism Right PA 2 PT-OP-K Range of Motion Start: 03/11/20 08:11 Freq: Status: Active Protocol: Document 03/11/20 08:13 [facility] (Rec: 03/11/20 09:05 [facility] [id number]) Knee Goniometric Range of Motion Knee Right Flexion Active (degrees) 120 Extension Active (degrees) 0 PT-OP-M Strength Start: 03/11/20 08:11 Freq: Status: Active Protocol: Document 04/15/20 08:23 [facility] (Rec: 04/15/20 10:01 [facility] [id number]) Hip Strength Hip Manual Muscle Testing Left Flexion (L2) 4 Good Extension (S1) 4- Good- Abduction 5 Normal Adduction 5 Normal External Rotation 4 Good Internal Rotation 5 Normal Right Flexion (L2) 5 Normal Extension (S1) 4- Good- Abduction 4+ Good+ Adduction 5 Normal External Rotation 5 Normal Internal Rotation 5 Normal Knee Strength Knee Manual Muscle Testing Left Flexion (S2) 5 Normal Extension (L3) 5 Normal Right Flexion (S2) 5 Normal Extension (L3) 5 Normal Ankle/Foot Strength Ankle and Foot Manual Muscle Testing Left Dorsiflexion (L4) 5 Normal Plantarflexion (S1) 5 Normal Right Dorsiflexion (L4) 5 Normal Plantarflexion (S1) 5 Normal Comments PF tested in standing PT-OP-Q Treatments Start: 03/11/20 08:11 Freq: Status: Active Protocol: Document 04/15/20 08:23 [facility] (Rec: 04/15/20 10:01 [facility] [id number]) Cardio Equipment Recumbent Bicycle Duration (Minutes) 5 Resistance 6 Seat Position 5 Therapeutic Exercises Prone Exercises hip ext Side bilateral Reps/Minutes 10 sec x2 ea TKE Prone Exercise Name prone Side bilateral Reps/Minutes 10 sec x3 Standing Exercises tandem stance Side bilateral Reps/Minutes 30 sec SLS Standing Exercise Name in mirror focus on no lat movmeent Side bilateral Reps/Minutes 3x ea lunge Standing Exercise Name mini at bar Side bilateral Reps/Minutes 10 squat Standing Exercise Name w/band around knees sit<>stand Equipment Used L3 Reps/Minutes 15 Self-Care/Home Management Treatment Education Patient Education Home Exercise Program Other Education review exercicses & discussion of doing 2-4x/week; stretch as needed, disccused tennis ball or froxen water bottle for under foot PT-OP-R Modalities Start: 03/11/20 08:11 Freq: Status: Active Protocol: Document 04/09/20 09:08 [facility] (Rec: 04/09/20 11:17 [facility] [id number]) Hot Pack/Cold Pack Treatment Cold Pack Location ant & post R knee Patient Position Hooklying Treatment Duration (minutes) 10 PT-OP-T Assessment and Plan Start: 03/11/20 08:11 Freq: Status: Active Protocol: Document 04/15/20 08:23 [facility] (Rec: 04/15/20 10:01 [facility] [id number]) Physical Therapy Assessment Goals activities Short Term Goal (STG) Pt will be able to go up/down stairs reciprocally without pain. STG Duration achieved Halfway Goal (LTG) pt will be able to stand as long as needed without requiring a 20 min break d/t pain and fatigue. LTG Duration achieved-only requires about 5 -10 min break strength Short Term Goal (STG) Pt will be indep with HEP STG Duration achieved Halfway Goal (LTG) Pt will have 5/5 LE strength and LPM to show improved stability and allow her to return to her typical activties without difficulty or pain. LTG Duration improved LE strength & indep w /HEP to cont strength LEFS Impairment 58/80 Halfway Goal (LTG) Pt will improve to 67/80 on LEFS to show ability to return to her typical activity ability. LTG Duration achieved to 72/80 Assessment Summary Assessment Pt has made significant improvements in strength and functional ability. She is noting no pain with activity. She feels like both knees feel the same now. Note she fatigues with standing but feels like she does not have as long of recovery time and it is not due to only her knees. 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 Pt has met goals and is to cont to work on strength at home with HEP at this time. DC today Physical Therapy Plan Discharge Physical Therapy Discharge Reasons Goals Met
== END 2020-04-18 13:13 | disposition home or self-care (01) ==
LOC: PHYS 08:15
PROVIDERS: PCP Nurse Practitioner Family; Referring Provider Student in an Organized Health Care Education/Training Program; Visit Provider Student in an Organized Health Care Education/Training Program
DX: M25.561 Pain in right knee (principal); R53.1 Weakness; R26.2 Difficulty in walking, not elsewhere classified
CPT/HCPCS: 97010; 97110; 97116; 97140; 97162; 97530; 97535

== ENCOUNTER 2020-07-31 19:19 | Emergency (ER) | payer OTHER, SELFPAY ==
[2020-07-31 19:23] VITALS: BP 198/84; PULSE 64; RESP 18; TEMP 36.7; O2SAT 96
--- NOTE | 2020-07-31 19:35 | ED.LOWEXIN ---
HPI - Extremity Injury (Lower) General Chief Complaint: Extremity Injury, Lower Stated Complaint: rt leg pain and swelling Time Seen by Provider: 07/31/20 19:20 Source: patient Mode of arrival: Ambulatory Limitations: no limitations History of Present Illness HPI Narrative: Patient is a 74-year-old female not on anticoagulation here for evaluation of right calf swelling and pain. States the symptoms have been there for the past couple days. She reports no specific trauma. Has no knee or ankle or hip pain. Has been doing icing and elevation at home without much improvement. She called her insurance company told her to come to the emergency department to evaluate for DVT. Related Data Home Medications Medication Instructions Recorded Confirmed MULTIVITAMIN (Multivitamin 1 cap PO EVERY DAY #0 09/23/10 -) [GLUCOSAMINE] PO QDAY #0 09/23/10 Previous Rx's Medication Instructions Recorded ondansetron [Zofran ODT] 4 mg SUBLINGUAL Q6HP PRN #6 odt 09/12/17 oxycodone-acetaminophen 1 - 2 tab PO Q4HP PRN #60 09/12/17 Review of Systems Constitutional Constitutional: Denies fever(s) ENT Ears, Nose, Mouth, and Throat: Denies disequilibrium Cardiovascular Cardiovascular: Denies chest pain and Denies dyspnea Respiratory Respiratory: Denies dyspnea Gastrointestinal Gastrointestinal: Denies abdominal pain Musculoskeletal Musculoskeletal: Denies arthralgias, Reports myalgias (Right calf), Denies numbness and Denies tingling Integumentary/Breasts Comments: Bruising to the right calf Neurologic Neurologic: Denies numbness, Denies restless legs, Denies tingling and Denies disequilibrium Hematologic/Lymphatic Hematologic/Lymphatic: Denies easy bleeding and Denies easy bruising Allergic/Immunologic Allergic/Immunologic: Denies urticaria Patient History Medical History Distal radius fracture, left (Inactive) Fx distal ulna-closed (Inactive) Open fracture of distal end of radius (Inactive) Open fracture of forearm, type I or II (Inactive) Osteoporosis (Inactive) Radial shaft fracture (Inactive) Social History marital status: lives independently: Yes Exam Initial Vital Signs Initial Vital Signs: Vital Signs Temperature 98.1 F 07/31/20 19:23 Pulse Rate 64 07/31/20 19:23 Respiratory Rate 18 07/31/20 19:23 Blood Pressure 198/84 H 07/31/20 19:23 Pulse Oximetry 96 07/31/20 19:23 Const General: cooperative and comfortable Limitations: mental status not altered HENMT Head: normal to inspection and normocephalic Resp Effort & Inspection: normal respiratory effort Cardio Rate: regular rate Pulses: dorsalis pedis present on the right Skin Other: Slight amount of bruising to the distal gastrocnemius area of the right calf medial aspect. Neuro General: patient alert and patient awake Cognition: normal cognition Motor: muscle tone normal throughout Sensory Exam: no sensory deficits noted Extrem General: normal to inspection and capillary refill normal Other: Patient does have swelling specifically to the medial aspect of the right calf muscle. Lateral calf muscle unremarkable. Right knee right ankle right hip unremarkable. Psych Appearance: grossly normal and well kempt Scores GCS [place] coma scale eye opening: Spontaneous Ruthann coma scale verbal response: Orientated Ruthann coma scale motor response: Obey commands [place] coma scale total score: 15 Wells' Criteria for DVT Active Cancer (Treatment within 6 months): No Bedridden recently >3 days or major surgery within 4 weeks: No Calf Swelling >3cm compared to other leg: No Collateral (nonvericose) superficial veins present: No Entire leg swollen: No Localized tenderness along the deep vein system: Yes Pitting edema, confined to symtomatic leg: No Paralysis, paresis, or recent plaster immobilization of ext: No Previously documented DVT: No Alternative dx to DVT as likely or more likely: No Wells' criteria for DVT: 1 Course Orders Ordered: ED Orders 07/31/20 19:36 US periph venous low extrem rt Stat Vital Signs Vital signs: Vital Signs - 8 hr 07/31/20 19:23 07/31/20 20:27 Temperature 98.1 F Pulse Rate 64 60 Respiratory Rate 18 18 Blood Pressure 198/84 H 146/65 H Pulse Oximetry 96 97 MDM - Extremity Injury (Lower) Imaging Data US - DVT: Radiologist's Impression: [address] [address] Ultrasound Report Signed Patient: Brooke Echevarria#: [id number] : 6Acct:[id number] Age/Sex: 74 / FDate of Service: 07/31/20 Loc: ED Accession Number: [id number] Procedure: US periph venous low extrem rt Ordering Provider: Steven Romeo D.O. PROCEDURE: US PERIPH VENOUS LOW EXTREM RT INDICATIONS: CALF PAIN TECHNIQUE: Real-time imaging, as well as color and pulse Doppler interrogation, were performed of the lower extremity deep veins from the inguinal ligament to the popliteal fossa. COMPARISON: None. FINDINGS: The common femoral, femoral and popliteal veins are normally compressible, and free of intraluminal thrombus. Color and pulse Doppler demonstrate normal phasic intraluminal flow. There is normal augmentation response to distal compression maneuver. Within the medial upper calf and popliteal fossa, there is a 5.8 x 1.7 x 4.8 cm heterogeneously hypoechoic collection without associated vascularity. IMPRESSION: 1.Negative for deep venous thrombosis of the right lower extremity. 2. A 5.8 x 1.7 x 4.8 cm heterogeneous collection in the popliteal fossa extending to the proximal medial right lower leg likely representing a complicated Downing's cyst or possible hematoma. If there is persistent clinical concern, consider nonemergent MRI knee with and without contrast to further evaluate. Dictated by: Yaniv Cooley M.D. on 07/31/2020 at 20:29 Approved by: Yaniv Cooley M.D. on 07/31/2020 at 20:32 MDM Narrative Medical decision making narrative: Patient has had no trauma. I have low suspicion for bony abnormality of feel we can hold on x-ray. Her Achilles tendon is intact. Low suspicion for compartment syndrome based on physical exam. Low suspicion for cellulitis based on physical exam. She does have swelling to the right calf for. Ultrasound shows no signs of DVT however there does appear to be a Downing cyst verses subcutaneous hematoma. Her physical exam would be more consistent with a subcutaneous hematoma. Feel patient be safely discharged home. Discussed with her the diagnosis and return precautions. She expressed understanding and agreement. Discharge Plan Departure Patient Disposition: Home Clinical Impression: Subcutaneous hematoma Instructions: DI for Hematoma (Bruise) Activity Restrictions/Additional Instructions: Recommend you contact your primary provider for follow-up. Continue all of your medications as directed. Return to the emergency department for any new or worsening symptoms Prescriptions: No Action MULTIVITAMIN (Multivitamin -) 1 cap PO EVERY DAY Qty: 0 RF: 0 [GLUCOSAMINE] PO QDAY Qty: 0 RF: 0 oxycodone-acetaminophen 5 MG/325 MG tablet 1 - 2 tab PO Q4HP PRNQty: 60 RF: 0 ondansetron [Zofran ODT] 4 MG tablet,disintegrating 4 mg Sublingual Q6HP PRNQty: 6 RF: 1 Referrals: Bridget Friedman MD [Primary Care Provider] -
[2020-07-31 20:27] VITALS: BP 146/65; PULSE 60; RESP 18; O2SAT 97
== END 2020-07-31 21:34 | disposition home or self-care (01) ==
PROVIDERS: Emergency Provider Emergency Medicine; PCP Student in an Organized Health Care Education/Training Program
DX: S80.11XA Contusion of right lower leg, initial encounter (principal)
CPT/HCPCS: 93971; 99283

== ENCOUNTER → 2021-01-10 14:42 | Outpatient (CLI) | payer OTHER, SELFPAY ==
--- NOTE | 2021-01-10 | DI.RAD.S_ITS ---
PROCEDURE: XR KNEE LT 3V INDICATIONS: left knee pain TECHNIQUE: 3 views of the knee were acquired. COMPARISON: [facility], CR, XR KNEE ARTHRITIC SERIES RT, 03/06/2020, 13:11. [facility], CR, XR KNEE RT 3V, 04/28/2019, 10:28. FINDINGS: Bones: No fractures or dislocations. No suspicious bony lesions. Prior lateral compartment unicompartmental hemiarthroplasty at the left knee Soft tissues: No joint effusion. No suspicious soft tissue calcifications. IMPRESSION: No sign of device loosening or disruption, no joint effusion or intra-articular loose body. Normal appearance after hemiarthroplasty. Dictated by: Denton Butler M.D. on 01/10/2021 at 15:37 Approved by: Denton Butler M.D. on 01/10/2021 at 15:38
== END ==
PROVIDERS: PCP Student in an Organized Health Care Education/Training Program; Referring Provider Student in an Organized Health Care Education/Training Program; Visit Provider Student in an Organized Health Care Education/Training Program
DX: M25.562 Pain in left knee (principal)
CPT/HCPCS: 73562

== ENCOUNTER → 2021-02-13 14:53 | Outpatient (CLI) | payer OTHER, SELFPAY ==
--- NOTE | 2021-02-13 | DI.MG.S_ITS ---
BILATERAL DIGITAL SCREENING MAMMOGRAM 3D/2D WITH CAD: 02/13/2021 CLINICAL: Routine screening. Comparison is made to exams dated: 12/28/2018 mammogram and 12/21/2017 mammogram - [facility]. There are scattered fibroglandular elements in both breasts. Current study was also evaluated with a Computer Aided Detection (CAD) system. There are benign post operative findings in the right breast. No significant masses, calcifications, or other findings are seen in either breast. There has been no significant interval change. IMPRESSION: BENIGN There is no mammographic evidence of malignancy. A 1 year screening mammogram is recommended. This exam was interpreted at Station ID: [id number]. NOTE: For mammograms, a report in lay terms will be sent to the patient. Approximately 15% of breast malignancies will not be visualized mammographically. In the management of a palpable breast mass, a negative mammogram must not discourage biopsy of a clinically suspicious lesion. Electronically Signed By: Juan Carlos michel/tg:02/13/2021 15:27:18 copy to: Jose Hays letter sent: Normal Exam ACR BI-RADS Category 2: Benign Finding(s) [id number]
== END ==
PROVIDERS: PCP Student in an Organized Health Care Education/Training Program; Referring Provider Student in an Organized Health Care Education/Training Program; Visit Provider Student in an Organized Health Care Education/Training Program
DX: M85.851 Other specified disorders of bone density and structure, right thigh (principal); Z12.31 Encounter for screening mammogram for malignant neoplasm of breast; Z78.0 Asymptomatic menopausal state; Z82.62 Family history of osteoporosis
CPT/HCPCS: 77063; 77067; 77080; 77081

== ENCOUNTER → 2021-04-19 08:11 | Outpatient (CLI) | payer OTHER, SELFPAY ==
[2021-04-19 08:39] LABS: Add Manual Diff / Slide Review NO; Basophils Absolute Auto 100 /uL (0-100); Eosinophils Absolute Auto 300 /uL (0-450); Eosinophils Percent Auto 5.7 % (2-4); Hematocrit 40.8 % (36-46); Hemoglobin 13.5 g/dL (12.0-16.0); Lymphocytes Absolute Auto 2200 /uL (1100-4500); Lymphocytes Percent Auto 43.7 % (25-40); Mean Corpuscular HGB Conc 33.1 % (30-36); Mean Corpuscular Volume 87.7 fL (80-100); Monocytes Absolute Auto 700 /uL (0-900); Monocytes Percent Auto 12.8 % (3-14); Neutrophils Absolute Auto 1900 /uL (1500-7000); Neutrophils Percent Auto 36.8 % (50-75); Platelet Count 263 X10^3/uL (150-400); Red Blood Cell Count 4.65 X10^6/uL (4.0-5.2); Red Cell Distribution Width 12.8 % (11.6-14.8); White Blood Cell Count 5.1 X10^3/uL (4.5-11.0)
[2021-04-19 09:09] LABS: Alanine Aminotransferase 20 IU/L (<35); Albumin 4.2 g/dL (3.5-5.0); Albumin Globulin Ratio 1.5 (1.0-2.8); Alkaline Phosphatase 66 U/L (38-126); Aspartate Aminotransferase 34 IU/L (14-36); BUN Creatinine Ratio 20.2 (6-22); Bilirubin Total 0.6 mg/dL (0.2-1.3); Blood Urea Nitrogen 17 mg/dL (7-17); Calcium 9.1 mg/dL (8.4-10.2); Carbon Dioxide 27 mmol/L (22-32); Chloride 106 mmol/L (98-107); Cholesterol 209 mg/dL (140-199); Estimated Glomerular Filt Rate > 60.0 mL/min (>60); Globulin 2.8 g/dL (1.7-4.1); Glucose 96 mg/dL (80-110); HDL Cholesterol 64 mg/dL (40-60); HEMOLYSIS < 15 (0-50); LDL Cholesterol Calculated 113 mg/dL (<100); Potassium 4.5 mmol/L (3.4-5.1); Sodium 141 mmol/L (137-145); Triglycerides 160 mg/dL (35-150)
[2021-04-19 09:37] LABS: Thyroid Stimulating Hormone 2.86 uIU/mL (0.47-4.68)
== END ==
PROVIDERS: PCP Student in an Organized Health Care Education/Training Program; Referring Provider Student in an Organized Health Care Education/Training Program; Visit Provider Student in an Organized Health Care Education/Training Program
DX: Z79.899 Other long term (current) drug therapy (principal); E78.5 Hyperlipidemia, unspecified
CPT/HCPCS: 36415; 80053; 80061; 84443; 85025

== ENCOUNTER → 2022-05-30 10:49 | Outpatient (CLI) | payer OTHER, SELFPAY ==
[2022-05-30 11:15] LABS: Bilirubin Urine UA NEGATIVE (NEGATIVE); Glucose Urine UA NEGATIVE (Negative); Ketones Urine UA NEGATIVE (NEGATIVE); Leukocyte Esterase Urine UA 1+ (NEGATIVE); Nitrite Urine UA NEGATIVE (Negative); Occult Blood Urine UA 1+ (Negative); Protein Urine UA NEGATIVE (Negative); Urobilinogen Urine UA 0.2 E.U./dL (0.2)
[2022-05-30 11:24] LABS: Appearance Urine UA SL CLOUDY; pH Urine UA 6.5 (4.5-8.0)
[2022-05-30 11:25] LABS: Bacteria Urine Moderate (10-30); Color Urine UA Yellow; RBC Urine 1-5/HPF (0-5/HPF); Squamous Epithelial Cell Urine 0-1 /HPF (0-5/HPF); WBC Urine 30-100/HPF (0-5/HPF)
== END ==
PROVIDERS: PCP Student in an Organized Health Care Education/Training Program; Visit Provider Nurse Practitioner Family
DX: R30.0 Dysuria (principal); R35.0 Frequency of micturition
CPT/HCPCS: 81001; 87086

== ENCOUNTER → 2022-08-02 13:57 | Outpatient (CLI) | payer OTHER, SELFPAY | PROVIDERS: PCP Student in an Organized Health Care Education/Training Program; Visit Provider Registered Nurse | DX: R30.0 Dysuria (principal) | CPT/HCPCS: 87086 ==

== ENCOUNTER → 2022-09-23 11:06 | Outpatient (CLI) | payer OTHER, SELFPAY ==
[2022-09-23 12:42] LABS: Influenza A - CEPHEID Flu A NEGATIVE (NEGATIVE); Influenza B - CEPHEID Flu B NEGATIVE (NEGATIVE); Respiratory Syncytial Virus POSITIVE (Negative)
[2022-09-23 12:45] LABS: COVID-19 CEPHEID 4-PLEX PCR Negative (Negative)
== END ==
PROVIDERS: PCP Student in an Organized Health Care Education/Training Program; Visit Provider Registered Nurse
DX: R05.9 Cough, unspecified (principal); Z20.822 Contact with and (suspected) exposure to COVID-19
CPT/HCPCS: 0241U

== ENCOUNTER → 2022-10-08 12:29 | Outpatient (ROUT) | payer OTHER, SELFPAY ==
[2022-10-08 13:22] LABS: Influenza A - CEPHEID Flu A NEGATIVE (NEGATIVE); Influenza B - CEPHEID Flu B NEGATIVE (NEGATIVE); Respiratory Syncytial Virus Negative (Negative)
[2022-10-08 13:51] LABS: COVID-19 CEPHEID 4-PLEX PCR Negative (Negative)
== END ==
PROVIDERS: PCP Student in an Organized Health Care Education/Training Program; Visit Provider Family Medicine
DX: Z20.822 Contact with and (suspected) exposure to COVID-19 (principal)
CPT/HCPCS: 0241U

== ENCOUNTER → 2023-06-13 09:15 | Outpatient (CLI) | payer OTHER, SELFPAY | PROVIDERS: PCP Student in an Organized Health Care Education/Training Program; Visit Provider Registered Nurse | DX: R10.9 Unspecified abdominal pain (principal) | CPT/HCPCS: 87077; 87086; 87186 ==

== ENCOUNTER → 2023-06-16 08:11 | Outpatient (CLI) | payer OTHER, SELFPAY ==
--- NOTE | 2023-06-16 | DI.US.S_ITS ---
PROCEDURE: US ABDOMEN LIMITED INDICATIONS: LIPOMA OF TORSO TECHNIQUE: Real-time scanning was performed of the abdominal and retroperitoneal organs, with image documentation. COMPARISON: None. FINDINGS: There is no sonographic abnormality in the area palpated by the patient. IMPRESSION: No sonographic abnormality in the clinical area of interest. Dictated by: Twyla Florence M.D. on 06/16/2023 at 10:22 Approved by: Twyla Florence M.D. on 06/16/2023 at 10:23
== END ==
PROVIDERS: PCP Registered Nurse; Referring Provider Registered Nurse; Visit Provider Registered Nurse
DX: D17.1 Benign lipomatous neoplasm of skin and subcutaneous tissue of trunk (principal)
CPT/HCPCS: 76705

== ENCOUNTER → 2023-07-19 07:34 | Outpatient (CLI) | payer OTHER, SELFPAY ==
[2023-07-19 08:19] LABS: Influenza A - CEPHEID Flu A NEGATIVE (NEGATIVE); Influenza B - CEPHEID Flu B NEGATIVE (NEGATIVE); Respiratory Syncytial Virus Negative (Negative)
[2023-07-19 09:14] LABS: COVID-19 CEPHEID 4-PLEX PCR Negative (Negative)
== END ==
PROVIDERS: PCP Registered Nurse; Visit Provider Registered Nurse
DX: R05.1 Acute cough (principal); Z20.822 Contact with and (suspected) exposure to COVID-19
CPT/HCPCS: 0241U

== ENCOUNTER → 2023-08-17 17:04 | Outpatient (CLI) | payer OTHER, SELFPAY ==
[2023-08-17 18:03] LABS: Add Manual Diff / Slide Review NO; Basophils Absolute Auto 0 /uL (0-100); Basophils Percent Auto 0.4 % (0-2); Eosinophils Absolute Auto 200 /uL (0-450); Eosinophils Percent Auto 2.1 % (2-4); Hematocrit 38.4 % (36-46); Hemoglobin 12.9 g/dL (12.0-16.0); Lymphocytes Absolute Auto 3200 /uL (1100-4500); Lymphocytes Percent Auto 32.1 % (25-40); Mean Corpuscular HGB Conc 33.6 % (30-36); Mean Corpuscular Volume 86.1 fL (80-100); Monocytes Absolute Auto 1100 /uL (0-900); Monocytes Percent Auto 11.4 % (3-14); Neutrophils Absolute Auto 5400 /uL (1500-7000); Platelet Count 327 X10^3/uL (150-400); Red Blood Cell Count 4.46 X10^6/uL (4.0-5.2); Red Cell Distribution Width 12.8 % (11.6-14.8); White Blood Cell Count 10.1 X10^3/uL (4.5-11.0)
[2023-08-17 18:33] LABS: Alanine Aminotransferase 34 IU/L (<35); Albumin 4.1 g/dL (3.5-5.0); Albumin Globulin Ratio 1.4 (1.0-2.8); Alkaline Phosphatase 91 U/L (38-126); Aspartate Aminotransferase 44 IU/L (14-36); BUN Creatinine Ratio 23.3 (6-22); Bilirubin Total 0.6 mg/dL (0.2-1.3); Blood Urea Nitrogen 20 mg/dL (7-17); Calcium 9.1 mg/dL (8.4-10.2); Carbon Dioxide 28 mmol/L (22-32); Chloride 103 mmol/L (98-107); Estimated Glomerular Filt Rate > 60 mL/min (>60); Glucose 89 mg/dL (80-110); HEMOLYSIS 16 (0-50); Potassium 4.2 mmol/L (3.4-5.1); Sodium 136 mmol/L (137-145); Total Protein 7.1 g/dL (6.3-8.2)
[2023-08-19 08:13] LABS: Hepatitis A Ab IgM Negative (Negative); Hepatitis A Ab Total Positive (Negative)
== END ==
PROVIDERS: PCP Registered Nurse; Referring Provider Registered Nurse; Visit Provider Registered Nurse
DX: R31.9 Hematuria, unspecified (principal); R30.0 Dysuria
CPT/HCPCS: 36415; 80053; 85025; 86708

== ENCOUNTER → 2023-10-25 10:17 | Outpatient (CLI) | payer MEDICARE, SELFPAY ==
--- NOTE | 2023-10-25 10:18 | DI.CT.S_ITS ---
PROCEDURE: CT IVP A/P W/WO INDICATIONS: GROSS HEMATURIA TECHNIQUE: Optional 5 mm thick noncontrast images acquired from the diaphragm to the symphysis pubis. After the administration of intravenous contrast, 5 mm thick images acquired from the diaphragm to the symphysis pubis after a 10-minute delay. 2 mm thick coronal and sagittal reformats were then performed of the kidneys and ureters. For radiation dose reduction, the following was used: automated exposure control, adjustment of mA and/or kV according to patient size. COMPARISON: None. FINDINGS: Image quality: Diagnostic. Kidneys and Ureters: Both kidneys are normal in size, without hydronephrosis or nephrolithiasis. No perinephric fat stranding. There is normal bilateral renal enhancement. Renal calyces appear normal in morphology when filled with contrast. Opacified portions of both ureters demonstrate normal caliber Bladder: Mild trabeculation of the bladder. No calcified bladder stones. Bladder incompletely distended with urinary contrast and there is suboptimal visualization due to beam hardening artifact. OTHER: Lower chest: Unremarkable. Liver: No solid mass. Scattered subcentimeter hypoattenuating lesions, too small to characterize by CT but probably small cysts. Gallbladder: No radiopaque gallstones or wall thickening. Biliary ducts: No biliary dilation. Pancreas: No ductal dilation. Spleen: Size is within normal limits. Adrenal Glands: No adrenal nodules. Stomach and Bowel: Normal colonic caliber, without significant wall thickening. Peritoneum: No abnormal intraperitoneal fluid. No free air. Ventral Wall: Tiny umbilical hernia containing fat Abdominal Nodes: No retroperitoneal or mesenteric adenopathy by size criteria. Vessels: Aorta and inferior vena cava are normal in size. PELVIS: Pelvic Organs: Unremarkable. Pelvic Nodes: No enlarged lymph nodes. Miscellaneous: No inguinal hernias are seen. Bones: 1.0 centimeter dense lesion in the L5 vertebral body (series 2, image 48). IMPRESSION: No nephrolithiasis or filling defects within the opacified renal collecting system or ureters. Bladder incompletely distended with urinary contrast and there is suboptimal visualization due to beam hardening artifact. 1.0 centimeter dense lesion within the L5 vertebral body, with indeterminate attenuation. Consider lumbar MRI with contrast for complete characterization, as osseous metastatic disease cannot be excluded. Dictated by: Andry Bright M.D. on 10/25/2023 at 12:15 Approved by: Andry Bright M.D. on 10/25/2023 at 12:22
== END ==
LOC: CT 10:17
PROVIDERS: PCP Registered Nurse; Referring Provider Urology; Visit Provider Urology
DX: N32.89 Other specified disorders of bladder (principal); R31.0 Gross hematuria; M89.9 Disorder of bone, unspecified
CPT/HCPCS: 74178; Q9967

== ENCOUNTER → 2023-11-04 08:18 | Outpatient (CLI) | payer MEDICARE, SELFPAY ==
--- NOTE | 2023-11-04 08:19 | DI.MRI.S_ITS ---
PROCEDURE: MR LUMBAR SPINE WO/W CON INDICATIONS: NEOPLASM OF UNCERTAIN BEHAVIOR OF BONE/CARTILAGE TECHNIQUE: Noncontrast sagittal T1 spin echo and T2 fast echo, sagittal STIR, and T2 fast spin echo through the lumbar spine. In cases with scoliosis, additional coronal T2 fast spin echo may be performed. COMPARISON: None. FINDINGS: Image quality: Excellent. Alignment and Curvature: Trace grade 1 anterior spondylolisthesis L2-3 degenerative Bone Marrow: Modic type 1 edematous endplate changes at L4-5. In the L5 vertebral body, there is a lipid poor 1.2 cm focus of marrow replacement without enhancement, all likely representing atypical lipid poor hemangioma. Spinal Cord: Conus medullaris terminates at the L1 level. Visualized cord demonstrates normal signal and size. Paraspinous Soft Tissues: No paravertebral masses. T12-L1: Normal appearance. L1-L2: Normal appearance. L2-L3: Disc space narrowing, circumferential disc bulge and hypertrophic facet joints combined result in moderate central stenosis. No foraminal stenosis. L3-L4: Disc space narrowing and circumferential disc bulge with hypertrophic facet joints results in moderate central stenosis. No foraminal stenosis. L4-L5: Disc space narrowing with circumferential disc bulge and hypertrophic facet joints results in moderate central stenosis. Severe left and mild right foraminal stenosis. L5-S1: Hypertrophic facet joints and disc bulge combined result in mild central stenosis. Moderate right and no left foraminal stenosis. IMPRESSION: Multilevel degenerative disc disease and arthropathy results in varying degrees of central and foraminal stenosis including moderate central and severe left foraminal stenosis at L5-S1. Lipid poor lesion without enhancement in the L5 vertebral body most likely reflects an atypical hemangioma. Given the history, consider follow-up bone scan to exclude neoplastic marrow replacement. Approved by: Kevin Devine M.D. on 11/04/2023 at 14:26
== END ==
PROVIDERS: PCP Registered Nurse; Referring Provider Registered Nurse; Visit Provider Registered Nurse
DX: D48.0 Neoplasm of uncertain behavior of bone and articular cartilage (principal); M51.36 Other intervertebral disc degeneration, lumbar region; M51.37 Other intervertebral disc degeneration, lumbosacral region; M48.07 Spinal stenosis, lumbosacral region; M48.061 Spinal stenosis, lumbar region without neurogenic claudication; M47.816 Spondylosis without myelopathy or radiculopathy, lumbar region; M47.817 Spondylosis without myelopathy or radiculopathy, lumbosacral region
CPT/HCPCS: 72158; A9579

== ENCOUNTER → 2023-11-30 10:24 | Outpatient (CLI) | payer MEDICARE, SELFPAY ==
--- NOTE | 2023-11-30 10:25 | DI.NM.S_ITS ---
PROCEDURE: NM BONE SCAN WHOLE BODY RADIOPHARMACEUTICAL: 20.7 mCi Tc-99m MDP IV. INDICATIONS: Disorder of bone, unspecified TECHNIQUE: Delayed whole-body scintigrams were obtained approximately 3-4 hours after intravenous injection of radiotracer. Anterior and posterior views were acquired from vertex to feet. Additional left and right oblique views of the lumbar spine were obtained. COMPARISON: [facility], MR, MR LUMBAR SPINE WO/W CON, 11/04/2023, 9:09. FINDINGS: There is normal radiotracer excretion in the urinary system. Scattered degenerative changes in the axial and appendicular skeleton, particularly focal on the 1st MTPs bilaterally. Focal linear uptake is seen in the lower lumbar spine, favored to represent degenerative changes. However, this is difficult to distinguish from a focal bone lesion, as was seen on prior MRI. No other suspicious focus of uptake identified elsewhere. Knee arthroplasties are present. IMPRESSION: Scattered degenerative changes. Focal uptake is seen in the lower lumbar spine, which may be degenerative. This is unfortunately in the same location as the bone lesions seen on MRI and uptake related to that lesion could be obscured. Consider follow-up MRI to assess stability. A PET-CT could also be helpful if the patient has a primary history of malignancy. Dictated by: Qamar Dobson M.D. on 11/30/2023 at 16:20 Approved by: Qamar Dobson M.D. on 11/30/2023 at 18:42
== END ==
PROVIDERS: PCP Registered Nurse; Referring Provider Registered Nurse; Visit Provider Registered Nurse
DX: M47.816 Spondylosis without myelopathy or radiculopathy, lumbar region (principal); M89.9 Disorder of bone, unspecified
CPT/HCPCS: 78306; A9503

== ENCOUNTER → 2024-02-21 15:21 | Outpatient (CLI) | payer MEDICARE, SELFPAY ==
[2024-02-21 18:04] LABS: Alanine Aminotransferase 23 IU/L (<35); Albumin 4.4 g/dL (3.5-5.0); Albumin Globulin Ratio 1.7 (1.0-2.8); Alkaline Phosphatase 71 U/L (38-126); Aspartate Aminotransferase 41 IU/L (14-36); BUN Creatinine Ratio 19.8 (6-22); Bilirubin Total 0.5 mg/dL (0.2-1.3); Blood Urea Nitrogen 23 mg/dL (7-17); Calcium 9.1 mg/dL (8.4-10.2); Carbon Dioxide 28 mmol/L (22-32); Chloride 107 mmol/L (98-107); Cholesterol 147 mg/dL (140-199); Estimated Glomerular Filt Rate 48 mL/min (>60); Globulin 2.6 g/dL (1.7-4.1); Glucose 88 mg/dL (80-110); HDL Cholesterol 67 mg/dL (40-60); HEMOLYSIS < 15 (0-50); LDL Cholesterol Calculated 61 mg/dL (<100); Potassium 4.6 mmol/L (3.4-5.1); Sodium 141 mmol/L (137-145); Triglycerides 96 mg/dL (35-150)
[2024-02-21 18:08] LABS: High Sensitivity CRP - Cardiac 0.8 mg/L (1.0-3.0)
== END ==
PROVIDERS: PCP Family Medicine; Referring Provider Family Medicine; Visit Provider Family Medicine
DX: E78.5 Hyperlipidemia, unspecified (principal)
CPT/HCPCS: 36415; 80053; 80061; 86140

== ENCOUNTER → 2024-06-30 09:17 | Outpatient (CLI) | payer MEDICARE, SELFPAY ==
--- NOTE | 2024-06-30 09:18 | DI.RAD.S_ITS ---
PROCEDURE: XR HIP W PEL IF DONE RT 2V INDICATIONS: Right hip pain, known OA other joints TECHNIQUE: 3 views of the hip were acquired. COMPARISON: None. FINDINGS: Bones: There are no osseous abnormalities. SI and hip joints: Left total hip prostheses remains anatomically aligned without loosening or infection. Moderate right hip degeneration is again noted. Both SI joints show mild degeneration. There is moderate degenerative disc disease L4-5 and L5-S1. Soft tissues: No soft tissue swelling, calcification or mass. IMPRESSION: Degeneration-stable. Left total hip prosthesis is unremarkable. Dictated by: Chai Flood M.D. on 07/03/2024 at 8:20 Approved by: Chai Flood M.D. on 07/03/2024 at 8:21
== END ==
PROVIDERS: Family Provider Family Medicine; PCP Family Medicine; Referring Provider Family Medicine; Visit Provider Family Medicine
DX: M16.11 Unilateral primary osteoarthritis, right hip (principal); M51.36 Other intervertebral disc degeneration, lumbar region; M51.37 Other intervertebral disc degeneration, lumbosacral region; Z96.642 Presence of left artificial hip joint
CPT/HCPCS: 73502

== ENCOUNTER 2024-07-31 07:30 | Outpatient (RCR) | payer MEDICARE, SELFPAY ==
--- NOTE | 2024-07-12 16:30 | PT.OIE ---
Current Diagnoses Unspecified osteoarthritis, unspecified site (07/12/24) Pain in right hip (07/12/24) Other abnormalities of gait and mobility (07/12/24) Past Medical History (Last Updated 05/26/24 @ 16:05 by Suzanne Thurman DO) Anemia Distal radius fracture, left Frequent UTI Fx distal ulna-closed Hearing loss Hemorrhoids History of melanoma (~1999) Measles Open fracture of distal end of radius Open fracture of forearm, type I or II Osteoarthritis Osteopenia (~1999) Osteoporosis Skin cancer (~2009) Wears glasses Past Surgical History (Last Updated 03/20/24 @ 18:33 by Lindsey Vo) Anesthesia History of section (~1976) 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) History of partial knee replacement (~2013) Visit Care Team Role Provider Type Suzanne Thurman DO Attending Provider Physician Family Provider Primary Care Provider Referring Provider Specialty: Medical Address: [address] [place] [address], [address], [place], [facility] Email: [email or web address] Physical Therapy Initial Evaluation PT-OP-A Visit Information Start: 07/11/24 12:15 Freq: Status: Active Protocol: Document 07/12/24 11:29 MB (Rec: 07/12/24 12:05 ELOISA [id number]) Out-Patient Physical Therapy Visit Information Visit Information Visit Type Initial Evaluation Visit Note [facility] Visit Start Time 11:29 Visit Stop Time 12:09 Visit Number 1 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 Pt has left ANGUS and she has two partial total knees. Pt was doing some gardening and was up and down and her right hip and thigh pain started. She has some cramps in legs at night. Pt has new ear infection and she took Tylenol yesterday and her leg felt great and she walked all over her property. Pt c/o pain and no paresthesias in the right leg when asks about symptoms. Pt is having pain at night and pain is lateral and medial. Prior Treatments and Tests PROCEDURE: XR HIP W PEL IF DONE RT 2V 06/30/24 INDICATIONS: Right hip pain, known OA other joints TECHNIQUE: 3 views of the hip were acquired. COMPARISON: None. FINDINGS: Bones: There are no osseous abnormalities. SI and hip joints: Left total hip prostheses remains anatomically aligned without loosening or infection. Moderate right hip degeneration is again noted. Both SI joints show mild degeneration. There is moderate degenerative disc disease L4-5 and L5-S1. Soft tissues: No soft tissue swelling, calcification or mass. IMPRESSION: Degeneration-stable. Left total hip prosthesis is unremarkable. IMPRESSION Lumbar MRI 11/04/2023 Multilevel degenerative disc disease and arthropathy results in varying degrees of central and foraminal stenosis including moderate central and severe left foraminal stenosis at L5-S1. Lipid poor lesion without enhancement in the L5 vertebral body most likely reflects an atypical hemangioma. Given the history, consider follow- up bone scan to exclude neoplastic marrow replacement. Treatment Goals Patient/Caregiver Goals To come up with a good exercise program, to reduce pain and to get back to her walking and hiking PT-OP-C Subjective Start: 07/11/24 12:15 Freq: Status: Active Protocol: Document 07/12/24 11:29 MB (Rec: 07/12/24 12:05 [id number]) OP-PT Subjective Patient Comments Patient Comments See history of current condition Patient Questionnaires Lower Extremity Functional Scale LEFS Score LEF does not make sense as far as pt not running, etc, and so score not use PT-OP-D Balance Start: 07/11/24 12:15 Freq: Status: Active Protocol: Document 07/12/24 11:29 MB (Rec: 07/12/24 12:05 MB [id number]) Balance Tests Other Other Balance Tests Performed Romberg EO and EC 30 sec each PT-OP-G Mobility & Gait Start: 07/11/24 12:15 Freq: Status: Active Protocol: Document 07/12/24 11:29 MB (Rec: 07/12/24 12:05 MB [id number]) OP Gait Assessment Comments Gait Comments Antalgic and careful gait with increased von angle left greater than right, slow maximus, wide RACHID and B lateral WB through feet and decreased toe push off and step-through steps, she favors the painful right leg PT-OP-J Posture/Palpation/Skin Start: 07/11/24 12:15 Freq: Status: Active Protocol: Document 07/12/24 11:29 MB (Rec: 07/12/24 12:05 MB [id number]) Posture Evaluation Comments Posture Comments Stiff lumbar spine and pt cannot extend much, less than 5 deg with repeated tries, with flexion, pt can touch the floor and perform 5 times with no pain or trouble Standing posture with shoes off: left shoulder higher than the right, mild Dowager's hump and increased thoracic kyphosis with mild left convexity, left iliac crest higher than the right, right leg rests mildly in front of left foot. In supine, right SI joint is mildly stiffer than the left but both are moving. B passive SLRs to grossly 80 deg and hamstrings do not feel tight. PT-OP-L Special Tests Start: 07/11/24 12:15 Freq: Status: Active Protocol: Document 07/12/24 11:29 MB (Rec: 07/12/24 12:05 MB [id number]) Special Tests Other Special Tests Special Tests Left Scour causes anterior right hip pain with right leg straight out; Right Scour causes lateral hip pain as does SAM. Pt states may feel like tight muscles. PT-OP-M Strength Start: 07/11/24 12:15 Freq: Status: Active Protocol: Document 07/12/24 11:29 MB (Rec: 07/12/24 12:05 MB [id number]) Hip Strength Hip Manual Muscle Testing Right Flexion (L2) 4 Good Abduction 4+ Good+ Comments Pain with hip flexion MMT Left Flexion (L2) 4 Good Abduction 4+ Good+ Comments Tested in supine Knee Strength Knee Manual Muscle Testing Right Flexion (S2) 5 Normal Extension (L3) 5 Normal Left Flexion (S2) 4+ Good+ Extension (L3) 5 Normal Ankle/Foot Strength Ankle and Foot Manual Muscle Testing Right Dorsiflexion (L4) 5 Normal Left Dorsiflexion (L4) 5 Normal Toe Strength Toe Manual Muscle Testing Right Great Toe Flexion 5 Normal Left Great Toe Extension 5 Normal PT-OP-Q Treatments Start: 07/11/24 12:15 Freq: Status: Active Protocol: Document 07/12/24 11:29 MB (Rec: 07/12/24 16:30 MB [id number]) Therapeutic Exercises Other Exercises Initiated review of HEP she brings in from home Comments Immediately d/cd standing quad stretch, SLRs and STS in setting of pain Self-Care/Home Management Treatment Education Patient Education Body Mechanics,Home Exercise Program,Joint Protection,Pain Management,Posture Other Education Ed pt in benefits of talking to provider about using Tylenol more regularly if it completely rid her of pain last date, ed in use of ice and heat, ed in proper sleeping position, discussed exercises to avoid presenting, ed in PT plan including TrP treatment PT-OP-T Assessment and Plan Start: 07/11/24 12:15 Freq: Status: Active Protocol: Document 07/12/24 11:29 MB (Rec: 07/12/24 16:30 MB [id number]) Physical Therapy Assessment Rehab Potential Rehabilitation Potential Good Evaluation Complexity Number of Personal Factors/Comorbidities 1-2 Number of Body Systems Impaired 3 Clinical Presentation at Evaluation Evolving Impairments Impairments Activity Tolerance,Balance, Coordination,Functional Activities,Functional Mobility ,Gait,Pain,Posture,Soft Tissue Mobility,Strength,Transfers Goals 4 Impairment Lack of HEP Water Meter Installer Goal (LTG) Pt will perform progressive HEP with I including pelvic realignment, flexibility, strengthening and balance exercises to improve pain and quality of life. LTG Duration 8 weeks 3 Impairment Hip weakness Intermediate Goal (LTG) Pt will present with B hip abduction and flexion to at least 4+/5 to improve balance and functional strength. LTG Duration 8 weeks 2 Impairment Evidence of imbalance Water Meter Installer Goal (LTG) Pt will perform WNLs on FGA to decrease fall risk. LTG Duration 8 weeks 1 Impairment Left hip and thigh pain Water Meter Installer Goal (LTG) Pt will report a 90% improvement in left hip and thigh pain to allow return to gardening and walking for exercise. LTG Duration 8 weeks Assessment Summary Assessment Pt is a 78 y/o female with history of OP or osteopenia per her report, possible L5 lesion from MRI that nuclear testing did not r/o, left THR and B partial TKAs with new onset of right hip and thigh pain. Functional testing is not conclusive today. She has right hip flexion weakness and pain with testing in supine and right hip also is uncomfortable with testing left hip. SAM is not necessarily positive and Scour induces lateral right hip pain. Pt has been performing some provocative exercises at home including standing quad stretch, SLRs in supine and STS. It is possible that myofascial tension and pain are the major causes of symptomology. Will initiate treatment for this and if symptoms do not improve, may refer back to physician for possible testing. Her right hip is the remaining joint not replaced and it might be worsening. She presents with pelvic obliquities that PT will also address. She has limited lumbar extension and stiffness and postural scoliosis. Slump testing and forward flexion negative. Physical Therapy Plan Frequency and Duration Frequency of Treatment 2x/Week Duration of treatment (weeks) 8 Plan of Care Start Date 07/12/24 Plan of Care End Date 09/11/24 Therapeutic Interventions Therapeutic Interventions Balance Training,Canalithic Repositioning,Coordination Training,Gait Training,Home Exercise Program,Joint Mobilizations,Manual Therapy, Neuromuscular Re-education, Patient/Caregiver Education, Self-Care/Home Management,Soft Tissue Mobilization,Taping, Therapeutic Activities, Therapeutic Exercises, Vestibular Rehabilitation Modalities Cold Pack/Ice Massage,Hot Packs Next Visit Focus/Plan Next Note Type Treatment Note Next Visit Plan Pelvic realignment exercises, Richard stretch with opp leg to chest, hamstring stretch and AP TrP and other manual techniques Further gentle flexibility, core, LE strengthening and balance training
--- NOTE | 2024-07-20 08:18 | PT.OTN ---
Current Diagnoses Unspecified osteoarthritis, unspecified site (07/20/24) Pain in right hip (07/20/24) Other abnormalities of gait and mobility (07/20/24) Physical Therapy Treatment Note PT-OP-A Visit Information Start: 07/11/24 12:15 Freq: Status: Active Protocol: Document 07/20/24 07:36 SP (Rec: 07/20/24 08:19 SP [id number]) Out-Patient Physical Therapy Visit Information Visit Information Visit Type Treatment Note Visit Note [facility] M[facility] Visit Start Time 07:36 Visit Stop Time 08:18 Visit Number 2 Number of SUPERVISOR PAPER TESTING Visits 1 Evaluation Information Evaluation Date 07/12/24 Precautions Precautions OP or osteopenia, possible lesion L5 PT-OP-B Current Condition Start: 07/11/24 12:15 Freq: Status: Active Protocol: Document 07/12/24 11:29 MB (Rec: 07/12/24 12:05 MB [id number]) Current Condition History of Current Condition Onset Date 1 month ago Current Complaints Right hip and leg pain History of Current Condition Pt reports that a month ago, she started getting right hip and thigh pain. Pt has left ANGUS and she has two partial total knees. Pt was doing some gardening and was up and down and her right hip and thigh pain started. She has some cramps in legs at night. Pt has new ear infection and she took Tylenol yesterday and her leg felt great and she walked all over her property. Pt c/o pain and no paresthesias in the right leg when asks about symptoms. Pt is having pain at night and pain is lateral and medial. Prior Treatments and Tests PROCEDURE: XR HIP W PEL IF DONE RT 2V 06/30/24 INDICATIONS: Right hip pain, known OA other joints TECHNIQUE: 3 views of the hip were acquired. COMPARISON: None. FINDINGS: Bones: There are no osseous abnormalities. SI and hip joints: Left total hip prostheses remains anatomically aligned without loosening or infection. Moderate right hip degeneration is again noted. Both SI joints show mild degeneration. There is moderate degenerative disc disease L4-5 and L5-S1. Soft tissues: No soft tissue swelling, calcification or mass. IMPRESSION: Degeneration-stable. Left total hip prosthesis is unremarkable. IMPRESSION Lumbar MRI 11/04/2023 Multilevel degenerative disc disease and arthropathy results in varying degrees of central and foraminal stenosis including moderate central and severe left foraminal stenosis at L5-S1. Lipid poor lesion without enhancement in the L5 vertebral body most likely reflects an atypical hemangioma. Given the history, consider follow- up bone scan to exclude neoplastic marrow replacement. Treatment Goals Patient/Caregiver Goals To come up with a good exercise program, to reduce pain and to get back to her walking and hiking PT-OP-C Subjective Start: 07/11/24 12:15 Freq: Status: Active Protocol: Document 07/20/24 07:36 SP (Rec: 07/20/24 08:19 SP [id number]) OP-PT Subjective Patient Comments Patient Comments Pt reports adjusted HEP per PT suggestion. PT-OP-D Balance Start: 07/11/24 12:15 Freq: Status: Active Protocol: Document 07/12/24 11:29 MB (Rec: 07/12/24 12:05 MB [id number]) Balance Tests Other Other Balance Tests Performed Romberg EO and EC 30 sec each PT-OP-G Mobility & Gait Start: 07/11/24 12:15 Freq: Status: Active Protocol: Document 07/12/24 11:29 MB (Rec: 07/12/24 12:05 MB [id number]) OP Gait Assessment Comments Gait Comments Antalgic and careful gait with increased von angle left greater than right, slow maximus, wide RACHID and B lateral WB through feet and decreased toe push off and step-through steps, she favors the painful right leg PT-OP-J Posture/Palpation/Skin Start: 07/11/24 12:15 Freq: Status: Active Protocol: Document 07/12/24 11:29 MB (Rec: 07/12/24 12:05 MB [id number]) Posture Evaluation Comments Posture Comments Stiff lumbar spine and pt cannot extend much, less than 5 deg with repeated tries, with flexion, pt can touch the floor and perform 5 times with no pain or trouble Standing posture with shoes off: left shoulder higher than the right, mild Dowager's hump and increased thoracic kyphosis with mild left convexity, left iliac crest higher than the right, right leg rests mildly in front of left foot. In supine, right SI joint is mildly stiffer than the left but both are moving. B passive SLRs to grossly 80 deg and hamstrings do not feel tight. PT-OP-L Special Tests Start: 07/11/24 12:15 Freq: Status: Active Protocol: Document 07/12/24 11:29 MB (Rec: 07/12/24 12:05 MB [id number]) Special Tests Other Special Tests Special Tests Left Scour causes anterior right hip pain with right leg straight out; Right Scour causes lateral hip pain as does SAM. Pt states may feel like tight muscles. PT-OP-M Strength Start: 07/11/24 12:15 Freq: Status: Active Protocol: Document 07/12/24 11:29 MB (Rec: 07/12/24 12:05 MB [id number]) Hip Strength Hip Manual Muscle Testing Right Flexion (L2) 4 Good Abduction 4+ Good+ Comments Pain with hip flexion MMT Left Flexion (L2) 4 Good Abduction 4+ Good+ Comments Tested in supine Knee Strength Knee Manual Muscle Testing Right Flexion (S2) 5 Normal Extension (L3) 5 Normal Left Flexion (S2) 4+ Good+ Extension (L3) 5 Normal Ankle/Foot Strength Ankle and Foot Manual Muscle Testing Right Dorsiflexion (L4) 5 Normal Left Dorsiflexion (L4) 5 Normal Toe Strength Toe Manual Muscle Testing Right Great Toe Flexion 5 Normal Left Great Toe Extension 5 Normal PT-OP-Q Treatments Start: 07/11/24 12:15 Freq: Status: Active Protocol: Document 07/20/24 07:36 SP (Rec: 07/20/24 08:19 SP [id number]) Cardio Equipment Recumbent Elliptical (Biodex) Duration (Minutes) 6 Resistance 3 Seat Position 7 Other BUEs& BLEs 45-50 RPMs Gym Equipment Shuttle Recovery Bilateral Squats Details cued knee alignment with feet, good effort tiring, pnfree Resistance 50 (2 navy) Shuttle Recovery Platform Stable Reps/Time x20 reps (blocked at 90 deg knee flexion) Therapeutic Exercises Supine Exercises pelvic realignment exercises Supine Exercise Name 1. adduction isometric 2. single pelvic lift 3. HS hip ext isometric Side bilateral Equipment Used towel under R knee for support needed comfort when straight Reps/Minutes 3 SH x5 Comments cues for proper form and gentle movement- pnfree response Manual Therapy Treatment Consent Patient gave verbal consent for manual Yes treatment Other Other Manual Treatments L SL relaxed supported with pillows. Gentle STMs to R quad , glut, Piriformis, good feedback response. pnfree PT-OP-T Assessment and Plan Start: 07/11/24 12:15 Freq: Status: Active Protocol: Document 07/20/24 07:36 SP (Rec: 07/20/24 08:19 SP [id number]) Physical Therapy Assessment Goals 4 Impairment Lack of HEP Care Home Goal (LTG) Pt will perform progressive HEP with I including pelvic realignment, flexibility, strengthening and balance exercises to improve pain and quality of life. LTG Duration 8 weeks 3 Impairment Hip weakness Authorization Rep Goal (LTG) Pt will present with B hip abduction and flexion to at least 4+/5 to improve balance and functional strength. LTG Duration 8 weeks 2 Impairment Evidence of imbalance Authorization Rep Goal (LTG) Pt will perform WNLs on FGA to decrease fall risk. LTG Duration 8 weeks 1 Impairment Left hip and thigh pain Authorization Rep Goal (LTG) Pt will report a 90% improvement in left hip and thigh pain to allow return to gardening and walking for exercise. LTG Duration 8 weeks Assessment Summary Assessment Pt reports good response to light manual to R LE, cues for set up and light gentle isometric during pelvic realignment exercises intiated for HEP today. Trialed light resistant equipment with no adverse affects reported. Pt reported little tired but felt good with initial HEP given for home. Physical Therapy Plan Frequency and Duration Frequency of Treatment 2x/Week Duration of treatment (weeks) 8 Plan of Care Start Date 07/12/24 Plan of Care End Date 09/11/24 Therapeutic Interventions Therapeutic Interventions Balance Training,Canalithic Repositioning,Coordination Training,Gait Training,Home Exercise Program,Joint Mobilizations,Manual Therapy, Neuromuscular Re-education, Patient/Caregiver Education, Self-Care/Home Management,Soft Tissue Mobilization,Taping, Therapeutic Activities, Therapeutic Exercises, Vestibular Rehabilitation Modalities Cold Pack/Ice Massage,Hot Packs Next Visit Focus/Plan Next Note Type Treatment Note Next Visit Plan Recheck Pelvic realignment exercises. Add next tx: Richard stretch with opp leg to chest , hamstring stretch and AP TrP and other manual techniques Further gentle flexibility, core, LE strengthening and balance training
--- NOTE | 2024-07-24 09:41 | PT.OTN ---
Current Diagnoses Unspecified osteoarthritis, unspecified site (07/24/24) Pain in right hip (07/24/24) Other abnormalities of gait and mobility (07/24/24) Physical Therapy Treatment Note PT-OP-A Visit Information Start: 07/11/24 12:15 Freq: Status: Active Protocol: Document 07/24/24 09:00 MB (Rec: 07/24/24 09:40 MB [id number]) Out-Patient Physical Therapy Visit Information Visit Information Visit Type Treatment Note Visit Note [facility] Visit Start Time 09:00 Visit Stop Time 09:40 Visit Number [address] WORKER Visits 0 Evaluation Information Evaluation Date 07/12/24 Precautions Precautions OP or osteopenia, possible lesion L5 PT-OP-B Current Condition Start: 07/11/24 12:15 Freq: Status: Active Protocol: Document 07/12/24 11:29 MB (Rec: 07/12/24 12:05 MB [id number]) Current Condition History of Current Condition Onset Date 1 month ago Current Complaints Right hip and leg pain History of Current Condition Pt reports that a month ago, she started getting right hip and thigh pain. Pt has left ANGUS and she has two partial total knees. Pt was doing some gardening and was up and down and her right hip and thigh pain started. She has some cramps in legs at night. Pt has new ear infection and she took Tylenol yesterday and her leg felt great and she walked all over her property. Pt c/o pain and no paresthesias in the right leg when asks about symptoms. Pt is having pain at night and pain is lateral and medial. Prior Treatments and Tests PROCEDURE: XR HIP W PEL IF DONE RT 2V 06/30/24 INDICATIONS: Right hip pain, known OA other joints TECHNIQUE: 3 views of the hip were acquired. COMPARISON: None. FINDINGS: Bones: There are no osseous abnormalities. SI and hip joints: Left total hip prostheses remains anatomically aligned without loosening or infection. Moderate right hip degeneration is again noted. Both SI joints show mild degeneration. There is moderate degenerative disc disease L4-5 and L5-S1. Soft tissues: No soft tissue swelling, calcification or mass. IMPRESSION: Degeneration-stable. Left total hip prosthesis is unremarkable. IMPRESSION Lumbar MRI 11/04/2023 Multilevel degenerative disc disease and arthropathy results in varying degrees of central and foraminal stenosis including moderate central and severe left foraminal stenosis at L5-S1. Lipid poor lesion without enhancement in the L5 vertebral body most likely reflects an atypical hemangioma. Given the history, consider follow- up bone scan to exclude neoplastic marrow replacement. Treatment Goals Patient/Caregiver Goals To come up with a good exercise program, to reduce pain and to get back to her walking and hiking PT-OP-C Subjective Start: 07/11/24 12:15 Freq: Status: Active Protocol: Document 07/24/24 09:00 MB (Rec: 07/24/24 09:40 MB [id number]) OP-PT Subjective Patient Comments Patient Comments Pt con't with right hip pain with every step. She arrives with cane. PT-OP-D Balance Start: 07/11/24 12:15 Freq: Status: Active Protocol: Document 07/12/24 11:29 MB (Rec: 07/12/24 12:05 MB [id number]) Balance Tests Other Other Balance Tests Performed Romberg EO and EC 30 sec each PT-OP-G Mobility & Gait Start: 07/11/24 12:15 Freq: Status: Active Protocol: Document 07/12/24 11:29 MB (Rec: 07/12/24 12:05 MB [id number]) OP Gait Assessment Comments Gait Comments Antalgic and careful gait with increased von angle left greater than right, slow maximus, wide RACHID and B lateral WB through feet and decreased toe push off and step-through steps, she favors the painful right leg PT-OP-J Posture/Palpation/Skin Start: 07/11/24 12:15 Freq: Status: Active Protocol: Document 07/12/24 11:29 MB (Rec: 07/12/24 12:05 MB [id number]) Posture Evaluation Comments Posture Comments Stiff lumbar spine and pt cannot extend much, less than 5 deg with repeated tries, with flexion, pt can touch the floor and perform 5 times with no pain or trouble Standing posture with shoes off: left shoulder higher than the right, mild Dowager's hump and increased thoracic kyphosis with mild left convexity, left iliac crest higher than the right, right leg rests mildly in front of left foot. In supine, right SI joint is mildly stiffer than the left but both are moving. B passive SLRs to grossly 80 deg and hamstrings do not feel tight. PT-OP-L Special Tests Start: 07/11/24 12:15 Freq: Status: Active Protocol: Document 07/12/24 11:29 MB (Rec: 07/12/24 12:05 MB [id number]) Special Tests Other Special Tests Special Tests Left Scour causes anterior right hip pain with right leg straight out; Right Scour causes lateral hip pain as does SAM. Pt states may feel like tight muscles. PT-OP-M Strength Start: 07/11/24 12:15 Freq: Status: Active Protocol: Document 07/12/24 11:29 MB (Rec: 07/12/24 12:05 MB [id number]) Hip Strength Hip Manual Muscle Testing Right Flexion (L2) 4 Good Abduction 4+ Good+ Comments Pain with hip flexion MMT Left Flexion (L2) 4 Good Abduction 4+ Good+ Comments Tested in supine Knee Strength Knee Manual Muscle Testing Right Flexion (S2) 5 Normal Extension (L3) 5 Normal Left Flexion (S2) 4+ Good+ Extension (L3) 5 Normal Ankle/Foot Strength Ankle and Foot Manual Muscle Testing Right Dorsiflexion (L4) 5 Normal Left Dorsiflexion (L4) 5 Normal Toe Strength Toe Manual Muscle Testing Right Great Toe Flexion 5 Normal Left Great Toe Extension 5 Normal PT-OP-Q Treatments Start: 07/11/24 12:15 Freq: Status: Active Protocol: Document 07/24/24 09:00 MB (Rec: 07/24/24 09:40 MB [id number]) Cardio Equipment Bicycle (Upright) Duration (Minutes) 10 Resistance 5 Seat Position 6 Therapeutic Exercises Supine Exercises Richard stretch Supine Exercise Name HEP Side bilateral Equipment Used Towel behind opp knee to chest Comments 45 sec Manual Therapy Treatment Consent Patient gave verbal consent for manual Yes treatment Other Other Manual Treatments B sidelying: STM and positional release B glutes, TFL, vastus lateralis and QL and TrP left hip rotators, right hip flexors and right hip rotators PT-OP-T Assessment and Plan Start: 07/11/24 12:15 Freq: Status: Active Protocol: Document 07/24/24 09:00 MB (Rec: 07/24/24 09:40 MB [id number]) Physical Therapy Assessment Rehab Potential Rehabilitation Potential Good Evaluation Complexity Number of Personal Factors/Comorbidities 1-2 Number of Body Systems Impaired 3 Clinical Presentation at Evaluation Evolving Impairments Impairments Activity Tolerance,Balance, Coordination,Functional Activities,Functional Mobility ,Gait,Pain,Posture,Soft Tissue Mobility,Strength,Transfers Goals 4 Impairment Lack of HEP Usp Goal (LTG) Pt will perform progressive HEP with I including pelvic realignment, flexibility, strengthening and balance exercises to improve pain and quality of life. LTG Duration 8 weeks 3 Impairment Hip weakness Drilling Foreman Goal (LTG) Pt will present with B hip abduction and flexion to at least 4+/5 to improve balance and functional strength. LTG Duration 8 weeks 2 Impairment Evidence of imbalance Usp Goal (LTG) Pt will perform WNLs on FGA to decrease fall risk. LTG Duration 8 weeks 1 Impairment Left hip and thigh pain Drilling Foreman Goal (LTG) Pt will report a 90% improvement in left hip and thigh pain to allow return to gardening and walking for exercise. LTG Duration 8 weeks Assessment Summary Assessment PT suspects that most pain is arthritic pain as she con't with symptoms with WB after TrP work. May benefit from further dxs/ortho consult in future. Did discuss benefits of upright bike for exercise and to help synovial fluid/ atricular cartilage for right hip. Ed pt to speak with doctor or pharmacist about Tylenol use as it helped her so much. Physical Therapy Plan Frequency and Duration Frequency of Treatment 2x/Week Duration of treatment (weeks) 8 Plan of Care Start Date 07/12/24 Plan of Care End Date 09/11/24 Therapeutic Interventions Therapeutic Interventions Balance Training,Canalithic Repositioning,Coordination Training,Gait Training,Home Exercise Program,Joint Mobilizations,Manual Therapy, Neuromuscular Re-education, Patient/Caregiver Education, Self-Care/Home Management,Soft Tissue Mobilization,Taping, Therapeutic Activities, Therapeutic Exercises, Vestibular Rehabilitation Modalities Cold Pack/Ice Massage,Hot Packs Next Visit Focus/Plan Next Note Type Treatment Note Next Visit Plan Review exercises as needed Add next tx: hamstring stretch and AP and pool exercises ( handouts in red notebook) TrP and other manual techniques Further gentle flexibility, core, LE strengthening and balance training
--- NOTE | 2024-07-31 08:10 | PT.OTN ---
Current Diagnoses Unspecified osteoarthritis, unspecified site (07/31/24) Pain in right hip (07/31/24) Other abnormalities of gait and mobility (07/31/24) Physical Therapy Treatment Note PT-OP-A Visit Information Start: 07/11/24 12:15 Freq: Status: Active Protocol: Document 07/31/24 07:30 MB (Rec: 07/31/24 08:10 MB [id number]) Out-Patient Physical Therapy Visit Information Visit Information Visit Type Treatment Note Visit Note [facility] MCR Visit Start Time 07:30 Visit Stop Time 08:10 Visit Number 4 Number of CREAM HAULER Visits 0 Evaluation Information Evaluation Date 07/12/24 Precautions Precautions OP or osteopenia, possible lesion L5 PT-OP-B Current Condition Start: 07/11/24 12:15 Freq: Status: Active Protocol: Document 07/12/24 11:29 MB (Rec: 07/12/24 12:05 MB [id number]) Current Condition History of Current Condition Onset Date 1 month ago Current Complaints Right hip and leg pain History of Current Condition Pt reports that a month ago, she started getting right hip and thigh pain. Pt has left ANGUS and she has two partial total knees. Pt was doing some gardening and was up and down and her right hip and thigh pain started. She has some cramps in legs at night. Pt has new ear infection and she took Tylenol yesterday and her leg felt great and she walked all over her property. Pt c/o pain and no paresthesias in the right leg when asks about symptoms. Pt is having pain at night and pain is lateral and medial. Prior Treatments and Tests PROCEDURE: XR HIP W PEL IF DONE RT 2V 06/30/24 INDICATIONS: Right hip pain, known OA other joints TECHNIQUE: 3 views of the hip were acquired. COMPARISON: None. FINDINGS: Bones: There are no osseous abnormalities. SI and hip joints: Left total hip prostheses remains anatomically aligned without loosening or infection. Moderate right hip degeneration is again noted. Both SI joints show mild degeneration. There is moderate degenerative disc disease L4-5 and L5-S1. Soft tissues: No soft tissue swelling, calcification or mass. IMPRESSION: Degeneration-stable. Left total hip prosthesis is unremarkable. IMPRESSION Lumbar MRI 11/04/2023 Multilevel degenerative disc disease and arthropathy results in varying degrees of central and foraminal stenosis including moderate central and severe left foraminal stenosis at L5-S1. Lipid poor lesion without enhancement in the L5 vertebral body most likely reflects an atypical hemangioma. Given the history, consider follow- up bone scan to exclude neoplastic marrow replacement. Treatment Goals Patient/Caregiver Goals To come up with a good exercise program, to reduce pain and to get back to her walking and hiking PT-OP-C Subjective Start: 07/11/24 12:15 Freq: Status: Active Protocol: Document 07/31/24 07:30 MB (Rec: 07/31/24 08:10 MB [id number]) OP-PT Subjective Patient Comments Patient Comments Pt con't with pretty similar right hip pain. She brought bike into her bedroom to use inside and she went water walking. She is taking for aspirin and Tylenol and advil. PT-OP-D Balance Start: 07/11/24 12:15 Freq: Status: Active Protocol: Document 07/12/24 11:29 MB (Rec: 07/12/24 12:05 MB [id number]) Balance Tests Other Other Balance Tests Performed Romberg EO and EC 30 sec each PT-OP-G Mobility & Gait Start: 07/11/24 12:15 Freq: Status: Active Protocol: Document 07/12/24 11:29 MB (Rec: 07/12/24 12:05 MB [id number]) OP Gait Assessment Comments Gait Comments Antalgic and careful gait with increased von angle left greater than right, slow maximus, wide RACHID and B lateral WB through feet and decreased toe push off and step-through steps, she favors the painful right leg PT-OP-J Posture/Palpation/Skin Start: 07/11/24 12:15 Freq: Status: Active Protocol: Document 07/12/24 11:29 MB (Rec: 07/12/24 12:05 MB [id number]) Posture Evaluation Comments Posture Comments Stiff lumbar spine and pt cannot extend much, less than 5 deg with repeated tries, with flexion, pt can touch the floor and perform 5 times with no pain or trouble Standing posture with shoes off: left shoulder higher than the right, mild Dowager's hump and increased thoracic kyphosis with mild left convexity, left iliac crest higher than the right, right leg rests mildly in front of left foot. In supine, right SI joint is mildly stiffer than the left but both are moving. B passive SLRs to grossly 80 deg and hamstrings do not feel tight. PT-OP-L Special Tests Start: 07/11/24 12:15 Freq: Status: Active Protocol: Document 07/12/24 11:29 MB (Rec: 07/12/24 12:05 MB [id number]) Special Tests Other Special Tests Special Tests Left Scour causes anterior right hip pain with right leg straight out; Right Scour causes lateral hip pain as does SAM. Pt states may feel like tight muscles. PT-OP-M Strength Start: 07/11/24 12:15 Freq: Status: Active Protocol: Document 07/12/24 11:29 MB (Rec: 07/12/24 12:05 MB [id number]) Hip Strength Hip Manual Muscle Testing Right Flexion (L2) 4 Good Abduction 4+ Good+ Comments Pain with hip flexion MMT Left Flexion (L2) 4 Good Abduction 4+ Good+ Comments Tested in supine Knee Strength Knee Manual Muscle Testing Right Flexion (S2) 5 Normal Extension (L3) 5 Normal Left Flexion (S2) 4+ Good+ Extension (L3) 5 Normal Ankle/Foot Strength Ankle and Foot Manual Muscle Testing Right Dorsiflexion (L4) 5 Normal Left Dorsiflexion (L4) 5 Normal Toe Strength Toe Manual Muscle Testing Right Great Toe Flexion 5 Normal Left Great Toe Extension 5 Normal PT-OP-Q Treatments Start: 07/11/24 12:15 Freq: Status: Active Protocol: Document 07/31/24 07:30 MB (Rec: 07/31/24 08:10 MB [id number]) Cardio Equipment Bicycle (Upright) Duration (Minutes) 10 Resistance 5-6 Seat Position 6 Therapeutic Exercises Supine Exercises Hamstring stretch with AP Supine Exercise Name HEP Side bilateral Reps/Minutes 1 rep, 30 APs Comments Hold leg behind knee Richard stretch Supine Exercise Name HEP Side bilateral Equipment Used Towel behind opp knee to chest Comments 45 sec Sitting Exercises Pool exercises Sitting Exercise Name HEP, also hip abd, extension, flexion, backward and side stepping Side bilateral Resistance Pool water, AROM Reps/Minutes Many reps Comments Thoracic rotation, SB, marching, hamstring curl, forward walk, squats Manual Therapy Treatment Consent Patient gave verbal consent for manual Yes treatment Other Other Manual Treatments Pt supine: STM right hip flexor and rectus femoris and TFL, TrP TFL PT-OP-T Assessment and Plan Start: 07/11/24 12:15 Freq: Status: Active Protocol: Document 07/31/24 07:30 MB (Rec: 07/31/24 08:10 MB [id number]) Physical Therapy Assessment Rehab Potential Rehabilitation Potential Good Evaluation Complexity Number of Personal Factors/Comorbidities 1-2 Number of Body Systems Impaired 3 Clinical Presentation at Evaluation Evolving Impairments Impairments Activity Tolerance,Balance, Coordination,Functional Activities,Functional Mobility ,Gait,Pain,Posture,Soft Tissue Mobility,Strength,Transfers Goals 4 Impairment Lack of HEP [facility] Goal (LTG) Pt will perform progressive HEP with I including pelvic realignment, flexibility, strengthening and balance exercises to improve pain and quality of life. 07/31/24: Pt has been performing progressive HEP LTG Duration Met 3 Impairment Hip weakness [facility] Goal (LTG) Pt will present with B hip abduction and flexion to at least 4+/5 to improve balance and functional strength. 07/31: Did not retest today LTG Duration 8 weeks 2 Impairment Evidence of imbalance [facility] Goal (LTG) Pt will perform WNLs on FGA to decrease fall risk. 07/31: Did not perform today LTG Duration 8 weeks 1 Impairment Left hip and thigh pain [employer] Goal (LTG) Pt will report a 90% improvement in left hip and thigh pain to allow return to gardening and walking for exercise. 07/31/24: No overall improvement in hip pain since starting PT LTG Duration 8 weeks Assessment Summary Assessment Pt has not had improvement in right hip pain since starting PT. She has progressed alignment exercises, flexibility, upright bike and now has aquatic program. These are all appropriate for arthritic conditions of the hip. Manual work has not gained long-term benefit for her. There is also the nuclear scan finding about her lumbar spine. She will con't with exercises and see Dr. Thurman next week and amaris liao from another PT script for aquatic PT at outside clinic. Will d/c this PT course today and thank you for the referral. Pt con't to limp with gait. Encouraged pt to use cane in left hand as needed. Physical Therapy Plan Other Referrals/Consults Referrals/Consults Recommended Refer back to PCP to assess right hip and lumbar findings on nuclear scan, consider pool therapy, recommend orthopedic consult
== END 2024-08-02 14:28 | disposition home or self-care (01) ==
LOC: PHYS 07:30
PROVIDERS: Family Provider Family Medicine; PCP Family Medicine; Referring Provider Family Medicine; Visit Provider Family Medicine
DX: M19.90 Unspecified osteoarthritis, unspecified site (principal); M25.551 Pain in right hip; R26.89 Other abnormalities of gait and mobility
CPT/HCPCS: 97110; 97140; 97161; 97535

== ENCOUNTER → 2024-09-11 10:38 | Outpatient (CLI) | payer MEDICARE, SELFPAY ==
--- NOTE | 2024-09-11 10:41 | DI.NM.S_ITS ---
PROCEDURE: [place] BONE SCAN WHOLE BODY RADIOPHARMACEUTICAL: 22 mCi Tc-99m MDP IV. INDICATIONS: status post right partial knee replacement TECHNIQUE: Delayed whole-body scintigrams were obtained approximately 3-4 hours after intravenous injection of radiotracer. Anterior and posterior views were acquired from vertex to feet. Additional left and right oblique views of the knees were obtained. COMPARISON: [facility], [place], XR KNEE 4+ VIEWS RIGHT, 08/25/2024, 10:17. [place], [place], [place] BONE SCAN WHOLE BODY, 11/30/2023, 10:42. FINDINGS: Photopenia is present in the medial right and lateral left knees consistent with arthroplasty. Increased uptake is noted within the knees, small bones of the feet 1st [facility] joints as well as shoulders consistent with arthritic change. Scattered areas of uptake are identified within the spine most prominent L5 which is unchanged compared to prior exam. IMPRESSION: Stable interval exam. Scattered areas of uptake consistent with arthritic change as above. Dictated by: Angelica Olvera M.D. on 09/11/2024 at 16:51 Approved by: Angelica Olvera M.D. on 09/11/2024 at 16:53
== END ==
LOC: NUCM 10:40
PROVIDERS: Family Provider Family Medicine; PCP Family Medicine; Referring Provider Orthopaedic Surgery; Visit Provider Orthopaedic Surgery
DX: Z09 Encounter for follow-up examination after completed treatment for conditions other than malignant neoplasm (principal); Z96.651 Presence of right artificial knee joint
CPT/HCPCS: 78306; A9503

== ENCOUNTER → 2024-10-30 18:09 | Outpatient (CLI) | payer MEDICARE, OTHER, SELFPAY | PROVIDERS: Family Provider Family Medicine; PCP Family Medicine; Referring Provider Nurse Practitioner Family; Visit Provider Nurse Practitioner Family | DX: R30.0 Dysuria (principal) | CPT/HCPCS: 87077; 87086; 87186 ==

== ENCOUNTER → 2025-04-16 07:19 | Outpatient (CLI) | payer MEDICARE, OTHER, SELFPAY ==
[2025-04-16 08:00] LABS: Alanine Aminotransferase 19 IU/L (<35); Albumin 4.2 g/dL (3.5-5.0); Albumin Globulin Ratio 1.7 (1.0-2.8); Alkaline Phosphatase 74 U/L (38-126); Blood Urea Nitrogen 19 mg/dL (7-17); Calcium 9.3 mg/dL (8.4-10.2); Carbon Dioxide 29 mmol/L (22-32); Chloride 105 mmol/L (98-107); Cholesterol 185 mg/dL (140-199); Estimated Glomerular Filt Rate > 60 mL/min (>60); Globulin 2.5 g/dL (1.7-4.1); Glucose 91 mg/dL (70-99); HDL Cholesterol 74 mg/dL (40-60); HEMOLYSIS < 15 (0-50); Potassium 4.3 mmol/L (3.4-5.1); Sodium 139 mmol/L (137-145); Total Protein 6.7 g/dL (6.3-8.2); Triglycerides 86 mg/dL (35-150)
[2025-04-17 05:09] LABS: CRP, High Sensitivity 0.78 mg/L (0.00-3.00)
== END ==
PROVIDERS: Family Provider Family Medicine; PCP Family Medicine; Referring Provider Family Medicine; Visit Provider Family Medicine
DX: E78.5 Hyperlipidemia, unspecified (principal)
CPT/HCPCS: 36415; 80053; 80061; 86140

== ENCOUNTER → 2025-06-14 09:28 | Outpatient (CLI) | payer MEDICARE, OTHER, SELFPAY ==
--- NOTE | 2025-06-14 09:33 | DI.RAD.S_ITS ---
PROCEDURE: XR DEXA AXIAL SKELETON INDICATIONS: Osteoprosis COMPARISON: Merged With [facility], CR, XR PELVIS WITH LATERAL HIP RIGHT, 02/20/2025, 12:24. [facility], CR, XR DEXA AXIAL SKELETON, 02/13/2021, 15:32. [facility], CR, XR DEXA AXIAL SKELETON, 02/06/2019, 10:07. FINDINGS: Lumbar Spine: Bone mineral density 1.099 g/cm2, T score 0.5, no statistical comparison can not be made due to differences technique/modality. Distal 1/3 of the left Forearm: Bone mineral density 0.584 g/cm2, T score -1.8. Fracture Risk Calculation (when applicable): Cannot be calculated secondary to bilateral total hip replacement. IMPRESSION: Osteopenia. Follow-up guidelines as follows: Osteoporosis: Consider a repeat DEXA and Vertebral Fracture Assessment (VFA) exam in 2 years or sooner if medically necessary, to reassess this patient's status. Osteopenia: Consider a repeat DEXA in 2-3 years to reassess this patient's status, or if there is a new clinical indication. Normal: Consider a repeat DEXA in 5 years or sooner, or if there is a new clinical indication. All treatment decisions require clinical judgment and consideration of individual patient factors, including patient preferences, comorbidities, previous drug use, risk factors not captured in the FRAX model (e.g., frailty, falls, vitamin D deficiency, increased bone turnover, interval significant decline in bone density ) and possible under- or over-estimation of fracture risk by FRAX. In addition, the NOF Guide recommends that FDA-approved medical therapies be considered in postmenopausal women and men age >= 50 years with a: * Hip or vertebral (clinical or morphometric) fracture * T-score of <=-2.5 at the spine or hip * Ten-year fracture probability by FRAX of >= 3% for hip fracture or >=20% for major osteoporotic fracture. Dictated by: Sadiq Damon M.D. on 06/14/2025 at 13:58 Approved by: Sadiq Damon M.D. on 06/14/2025 at 14:00
== END ==
LOC: RAD 09:33
PROVIDERS: PCP Family Medicine; Referring Provider Family Medicine; Visit Provider Family Medicine
DX: M81.0 Age-related osteoporosis without current pathological fracture (principal)
CPT/HCPCS: 77080

== ENCOUNTER → 2025-06-17 12:38 | Outpatient (CLI) | payer MEDICARE, OTHER, SELFPAY ==
[2025-06-17 13:22] LABS: Influenza A - CEPHEID Flu A NEGATIVE (NEGATIVE); Influenza B - CEPHEID Flu B NEGATIVE (NEGATIVE)
[2025-06-17 13:23] LABS: COVID-19 CEPHEID 4-PLEX PCR Negative (Negative)
== END ==
PROVIDERS: PCP Family Medicine; Visit Provider Nurse Practitioner Family
DX: R09.81 Nasal congestion (principal)
CPT/HCPCS: 87637